=== PATIENT | male | born 1945 | race Caucasian/White ===

== ENCOUNTER 2019-09-25 18:35 | Inpatient (IN) | payer MEDICARE, OTHER ==
[2019-09-25] MEDS ORDERED: Acetaminophen 500 MG TAB ONE (19:19)
--- NOTE | 2019-09-25 19:40 | RAD ---
PORTABLE CHEST: Date: 09-25-2019 Provided Clinical History: Cough, fever. FINDINGS: Comparison 09-14-14. Cardiac silhouette appears enlarged, which may be partially on the basis of portable technique. There is right lower lung zone airspace disease. There is questioned right suprahilar airspace disease. Th e lungs appear otherwise clear. There is no pleural fluid or pneumothorax apparent. IMPRESSION: Right hemithoracic airspace disease as described, compatible with pneumonia in the appropriate clinic al context. Follow up is recommended. POS: DARCY
[2019-09-25 19:56] LABS: #Lymphocytes 0.6 thou/uL (1.20-3.40); #Monocytes 0.3 thou/uL (0.11-0.59); #Neutrophils 6.2 thou/uL (1.40-6.50); %Basophils 0.1 % (0.0-1.0); %Eosinophils 0.2 % (0.0-10.0); %Lymphocytes 8.1 % (21.0-51.0); %Monocytes 4.1 % (0.0-10.0); %Neutrophils 87.5 % (42.0-75.0); Hemoglobin 12.3 g/dL (14.0-18.0); Mean Corpuscular Hemoglobin 29.8 pg (27.0-31.0); Mean Corpuscular Volume 87.5 fL (78.0-98.0); Mean Platelet Volume 8.5 fL (7.4-10.4); Platelet Count 288 thou/uL (130-400); Red Blood Cell (RBC) Count 4.13 mill/uL (4.70-6.10); White Blood Cell (WBC) Count 7.1 thou/uL (4.8-10.8)
[2019-09-25 20:13] LABS: ALT (SGPT) 41 U/L (8-55); AST (SGOT) 68 U/L (5-34); Albumin 3.5 g/dL (3.4-4.8); Alkaline Phosphatase 84 U/L (40-110); Anion Gap 21 mmol/L (10-20); BUN (Urea Nitrogen) 77 mg/dL (8.4-25.7); Bilirubin, Total 0.5 mg/dL (0.2-1.2); Calc. Creatinine Clearance 0 mL/min (70-130); Calcium 9.3 mg/dL (7.8-10.44); Carbon Dioxide 21 mmol/L (23-31); Chloride 99 mmol/L (98-107); Estimated GFR-MDRD 8; Globulin 3.9 g/dL (2.4-3.5); Glucose 130 mg/dL (83-110); Potassium 3.9 mmol/L (3.5-5.1); Protein, Total 7.4 g/dL (5.8-8.1); Sodium 137 mmol/L (136-145)
[2019-09-25] MEDS ORDERED: Ondansetron PF 4 MG/2 ML Vial IVP PRN (21:04)
[2019-09-25] MEDS ORDERED: Sodium Chloride 0.9% 1,000 ML IV SCH (21:30)
[2019-09-25] MEDS ORDERED: cefTRIAXone\\ROCEPHIN 2 GM VIAL ONE (21:49)
[2019-09-25] MEDS ORDERED: Azithromycin 500 MG VIAL ONE (21:52)
[2019-09-25] MEDS ORDERED: Azithromycin 500 MG in Sodium Chloride 0.9% 250 ML 250 ML IVPB SCH (22:00)
[2019-09-25] MEDS ORDERED: Cefepime 1 GM in Sodium Chloride 0.9% 100 ML IVPB SCH (22:00)
--- NOTE | 2019-09-25 23:02 | HP ---
CHIEF COMPLAINT: Fever. HISTORY OF PRESENT ILLNESS: Mr. Baugh is a 74-year-old male with past medical history of diabetes mellitus, type 2; hypertension; and hyperlipidemia, presented to the emergency room with fever. In the emergency room, the patient looks somnolent and lethargic. The patient had a temperature of 101.1. The patient's oxygen saturation was 89% to 90% on room air. Currently 94% on 3 L/minute nasal cannula. On physical exam, the patient has crackles on the right lung. Chest x-ray shows right pneumonia? Septic workup done in the ED. Started on IV antibiotics. Viral panel including COVID testing was done and was sent to the emergency room. The patient also was found to be in acute renal failure with a creatinine of 6.53. [facility] is being consulted. The patient just came back from [facility] and he has been having cough and fever for one week. PAST MEDICAL HISTORY: As mentioned above in the history of present illness. PAST SURGICAL HISTORY: Tonsillectomy. SOCIAL HISTORY: No history of smoking or alcohol drinking or drug abuse. FAMILY HISTORY: Reviewed and noncontributory. ALLERGIES: NO KNOWN ALLERGIES. HOME MEDICATIONS: Please see home medication reconciliation form for updated medications. REVIEW OF SYSTEMS: Review of 14 systems negative except what is mentioned in the history of present illness. PHYSICAL EXAMINATION: GENERAL: The patient is somnolent, lethargic. VITAL SIGNS: Blood pressure 136/71, temperature 101.1, respiratory rate is 18, and oxygen saturation is 93% on 3 L/minute nasal cannula. HEAD AND NECK: Normocephalic, atraumatic. NECK: Supple. CHEST: Crackles in the right chest. HEART: S1 and S2. Regular. ABDOMEN: Soft, nontender. Bowel sounds present. NEURO: The patient is somnolent, lethargic. Moving extremities. PSYCH: Unable to assess. EXTREMITIES: No clubbing or cyanosis. GENITOURINARY: No suprapubic tenderness. No flank tenderness. LABORATORY DATA: Sodium 137, BUN is 77, creatinine 6.5, carbon dioxide is 21, lactic acid 1.1, and glucose is 130. WBC count is 7.1, hemoglobin 12.3, and platelets 288. IMAGING DATA: Chest x-ray shows right airspace disease compatible with pneumonia. ASSESSMENT: 1. Pneumonia. 2. Suspected COVID-2019 infection. 3. Acute renal failure. 4. Diabetes mellitus, type 2. 5. Hypertension. 6. Hyperlipidemia. PLAN: 1. Admit. 2. Septic workup including blood cultures, viral panel including COVID-2019 testing. 3. Isolation precautions, contact and droplet. 4. IV antibiotics. 5. Consult Nephrology for evaluation and further management regarding acute renal failure. 6. Cautious IV fluid hydration. 7. Monitor kidney function and urine output. 8. Reconcile home medications. 9. DVT prophylaxis as appropriate. 10. Expected length of stay, 2 midnights or more. Job ID: [id number]
[2019-09-25 23:22] VITALS: BMI 32.1
[2019-09-26] MEDS: Sodium Chloride 0.9% 1,000 ML IV SCH ×2 (00:39→17:23)
[2019-09-26 04:44] LABS: #Monocytes 0.3 thou/uL (0.11-0.59); #Neutrophils 5.1 thou/uL (1.40-6.50); %Basophils 0.1 % (0.0-1.0); %Eosinophils 0.3 % (0.0-10.0); %Lymphocytes 15.5 % (21.0-51.0); %Monocytes 5.2 % (0.0-10.0); %Neutrophils 78.9 % (42.0-75.0); Hemoglobin 10.7 g/dL (14.0-18.0); Mean Corpuscular HGB CONC 34.2 g/dL (32.0-36.0); Mean Corpuscular Hemoglobin 30.1 pg (27.0-31.0); Mean Corpuscular Volume 87.8 fL (78.0-98.0); Mean Platelet Volume 8.4 fL (7.4-10.4); Platelet Count 262 thou/uL (130-400); RBC Distribution Width 12.1 % (11.5-14.5); Red Blood Cell (RBC) Count 3.55 mill/uL (4.70-6.10); White Blood Cell (WBC) Count 6.4 thou/uL (4.8-10.8)
[2019-09-26 05:11] LABS: ALT (SGPT) 35 U/L (8-55); AST (SGOT) 59 U/L (5-34); Alkaline Phosphatase 70 U/L (40-110); Anion Gap 16 mmol/L (10-20); BUN (Urea Nitrogen) 83 mg/dL (8.4-25.7); Bilirubin, Total 0.4 mg/dL (0.2-1.2); Calc. Creatinine Clearance 14 mL/min (70-130); Calcium 8.4 mg/dL (7.8-10.44); Carbon Dioxide 23 mmol/L (23-31); Chloride 102 mmol/L (98-107); Estimated GFR-MDRD 8; Globulin 3.4 g/dL (2.4-3.5); Glucose 91 mg/dL (83-110); Potassium 3.7 mmol/L (3.5-5.1); Protein, Total 6.4 g/dL (5.8-8.1); Sodium 137 mmol/L (136-145)
[2019-09-26] MEDS ORDERED: Dextrose 50% Abboject 50 ML SYRINGE SLOW IVP PRN (08:17)
[2019-09-26] MEDS ORDERED: Dextrose 5% in Water 1,000 ML IV PRN (08:17)
[2019-09-26] MEDS ORDERED: Senokot S 8.6-50 MG TAB PO PRN (08:27)
[2019-09-26] MEDS ORDERED: Calcium Carbonate 500 MG ChewTAB PO PRN (08:27)
--- NOTE | 2019-09-26 08:37 | CON ---
DATE OF CONSULTATION: 09/26/2019 REASON FOR CONSULTATION: Possible COVID-19 infection, pneumonia. HISTORY OF PRESENT ILLNESS: The patient is a 74-year-old, who returned from [place] about 2 weeks ago where he has a 2nd house. He has not felt well since Wednesday. He has been running a fever up to 101. He has not been able to eat or drink anything. He has had a dry cough. He has also been found to be in acute renal failure. PAST MEDICAL HISTORY: 1. Type 2 diabetes. 2. Hypertension. 3. Hyperlipidemia. PAST SURGICAL HISTORY: Tonsillectomy. SOCIAL HISTORY: Does not smoke. Does not consume alcohol. He is retired. FAMILY MEDICAL HISTORY: Unremarkable. MEDICATIONS: Prior to admission; 1. Lisinopril/hydrochlorothiazide 20/12.5 one b.i.d. 2. Aspirin 81 mg daily. 3. Zocor 40 mg daily. 4. Glipizide 10 mg every morning. 5. Metformin 1000 mg b.i.d. ALLERGIES: NONE. REVIEW OF SYSTEMS: He has had subjective fever and chills. No nausea, vomiting, diarrhea. No hemoptysis. No hematochezia. No hematuria. No dysuria. PHYSICAL EXAMINATION: VITAL SIGNS: Temperature 98.8, pulse 63, respirations 22, O2 saturation 95% on 2 L, blood pressure 116/68. GENERAL: The patient is an elderly male, who appears in no acute respiratory distress. His O2 sats are 95% on 2 L. HEENT: Pupils react, sclerae icteric. Oropharynx clear. NECK: No adenopathy or JVD. LUNGS: He has inspiratory crackles both bases, best heard posteriorly. CARDIOVASCULAR: S1 and S2, regular without audible murmur. ABDOMEN: Soft, nontender to palpation. EXTREMITIES: No clubbing, cyanosis, or edema. LABORATORY DATA: Sodium 137, potassium 3.7, chloride 102, CO2 of 23, BUN 83, creatinine 7.1, glucose 91. AST 59, ALT 35. Albumin 3.0. White blood cell count 6.4, hematocrit 31.2, platelet count 262. His x-ray shows a right lower lobe infiltrate. ASSESSMENT: This is a 74-year-old male presenting with a 1-week history of a febrile illness with cough. X-ray shows infiltrative changes and he has risk factors of foreign travel that necessitate ruling out COVID-19 infection. He has comorbidities including diabetes mellitus and now the development of acute renal failure. RECOMMENDATIONS: 1. Agree with COVID-19 isolation. 2. Continue current antibiotics, although, I would be very aware with the vancomycin situation in acute renal failure. 3. Continue hydration. 4. Recommend Nephrology consultation. 5. If any worsening of his oxygenation, I will add Plaquenil to the azithromycin, but for now I will reserve that. 6. The patient needs to have his glucose monitored and we will treat him with sliding scale insulin for hyperglycemia. The above encompassed 70 minutes of time, of that time greater than 50% spent with the patient and/or the patient's unit in the hospital. Job ID: [id number]
[2019-09-26] MEDS: Famotidine 20 MG TAB PO SCH (08:55)
[2019-09-26] MEDS: Heparin 5,000 UNITS/ML VIAL SC SCH ×2 (08:55→20:22)
[2019-09-26] MEDS ORDERED: Famotidine/PF 20 mg/2ml Vial SLOW IVP SCH (09:00)
[2019-09-26 09:52] LABS: Bilirubin Negative (Negative); Blood, Urine 1+ (Negative); Clarity Clear (Clear); Glucose, Urine (Dipstick) Normal (Negative); Leukocyte Negative Leu/uL (Negative); Nitrite Negative (Negative); Protein, Urine (Dipstick) 50 mg/dL (Neg-Trace); Squamous Epithelial None Seen HPF (0-3); Urobilinogen Normal mg/dL (Less than 2); WBC/HPF 0-3 HPF (0-3)
[2019-09-26 09:53] LABS: Bacteria/HPF 1+ HPF (None Seen)
[2019-09-26 09:54] LABS: Urine Culture Reflex Yes Yes
[2019-09-26 10:59] LABS: Creatinine, Urine 76.27 mg/dL (63-166)
--- NOTE | 2019-09-26 11:16 | CON ---
DATE OF CONSULTATION: REASON FOR CONSULTATION: Elevated creatinine. HISTORY OF PRESENT ILLNESS: This is a very pleasant 74-year-old gentleman, presented to the hospital with cough and fevers and was taking aspirin for his fevers presented to the hospital. The patient is admitted for possible COVID-19 infection and pneumonia. The patient has had creatinine ranging anywhere from 0.8 to 1.7 in April of 2019. The patient was taking HUBERT inhibitors as well as hydrochlorothiazide. The patient has dyspnea on minimal exertion. Denies any chest pain. PAST MEDICAL HISTORY: Significant for hypertension, diabetes mellitus, hyperlipidemia, tonsillectomy. SOCIOECONOMIC HISTORY: No alcohol or drug use. FAMILY HISTORY: Negative for ESRD. ALLERGIES: REVIEWED. HOME MEDICATIONS: List reviewed. HOSPITAL MEDICATIONS: List reviewed. REVIEW OF SYSTEMS: A 15-point review of systems was performed, negative except what was noted above. HEENT: Eyes intact, no diplopia. Ears: No hearing loss or earache. Nose: No discharge or bleeding. Chest: No cough or phlegm. Abdomen: No nausea or vomiting. Genitourinary: No hematuria. No Rockwell catheter. Musculoskeletal: No low back pain. No joint swelling or pain. Neurological: No syncope. No seizures. Skin: No complaints of rash or itching. Psychiatric: No depression. Constitutional: No weight loss or loss of appetite. PHYSICAL EXAMINATION: GENERAL: The patient is awake, alert, and in [id number] distress. VITAL SIGNS: Temperature is 99.9, pulse 68, breathing is 16, blood pressure 127/68. HEENT: Head normocephalic and atraumatic. Eyes intact, no ulcers. Nose intact, no ulcers. Ears intact, no ulcers. Neck: Supple. No JVD. Chest: Symmetrical and lungs have crackles bilaterally. Cardiovascular: Shows S1 and S2, no rub, no murmur. Gastrointestinal: Abdomen is soft, bowel sounds positive. Extremities: Show no edema or ulcers. Skin: Shows no rash or petechiae. Musculoskeletal: Shows no joint swelling or stiffness. Genitourinary: Shows no Rockwell or CVA tenderness. Neurologic: Motor intact. Cranial nerves intact. LABORATORY DATA: Creatinine is 7.7, potassium 3.7, and bicarb 23. Urine shows protein present as well as blood pleasant. ASSESSMENT AND RECOMMENDATIONS: 1. Acute kidney injury with chronic kidney disease in the setting of sepsis, most likely acute tubular necrosis because of underlying sepsis. No urgent indication for dialysis. The patient is nonoliguric. 2. Microscopic hematuria, ordered renal imaging. 3. Proteinuria. 4. Overall, no urgent indication for dialysis. 5. Prognosis remains guarded. Job ID: [id number]
--- NOTE | 2019-09-26 15:34 | EKG ---
Test Reason : Blood Pressure : / mmHG Vent. Rate : 077 BPM Atrial Rate : 077 BPM P-R Int : 156 ms QRS Dur : 082 ms QT Int : 376 ms P-R-T Axes : 040 017 -08 degrees QTc Int : 425 ms Normal sinus rhythm Normal ECG Confirmed by LEIGHANN MALONE, MARIJA Epperson ([id number]), scientific editor ELIAN WELLER ([id number]) on 09/26/2019 3:34:06 PM Referred By: Confirmed By:MARIJA LAWTON MD
--- NOTE | 2019-09-26 17:38 | PDOC.HOSPP ---
- Subjective Encounter Date: 09/26/19 Encounter Time: 17:38 - Objective Vital Signs & Weight: Vital Signs (12 hours) Temp Pulse Resp BP Pulse Ox 09/26/19 15:12 99.4 F 70 20 114/54 L 94 L 09/26/19 11:28 99.7 F H 76 20 148/72 H 95 09/26/19 08:46 99.9 F H 68 18 127/68 93 L Weight Weight 230 lb 4.8 oz I&O: 09/25/19 09/26/19 09/27/19 06:59 06:59 06:59 Intake Total 839 1320 Output Total 450 730 Balance 389 590 Result Diagrams: 09/27/19 04:26 09/27/19 04:26 Additional Labs: Accuchecks 09/26/19 09:36 POC Glucose 97 Hospitalist ROS - Medication Medications: Active Medications Generic Name Dose Route Start Last Admin Trade Name Freq PRN Reason Stop Dose Admin Famotidine 20 mg 09/26/19 09:00 09/26/19 08:55 Pepcid PO 20 mg DAILY ROSALVA Administration Heparin Sodium (Porcine) 5,000 units 09/26/19 09:00 09/26/19 08:55 Heparin SC 5,000 units BID ROSALVA Administration Sodium Chloride 1,000 mls @ 70 mls/hr 09/25/19 21:45 09/26/19 17:23 Normal Saline 0.9% IV 1,000 mls .[id number] ROSALVA Administration Sodium Chloride 10 ml 09/26/19 09:00 09/26/19 08:55 Flush - Normal Saline IVF 10 ml Q12HR ROSALVA Administration Hosp A/P - Plan Sepsis due to Pneumonia IJEOMA/CKD 4 Obesity BMI 32.1 HTN HLD DM2 PLAN: Cont Empiric Atbx Pulm/Nephro input appreciated Await COVID testing Add UA Cont sliding scale Pt not examined to save PPE AM labs Full code DPOA - self/family
[2019-09-26] MEDS: Azithromycin 500 MG in Sodium Chloride 0.9% 250 ML 250 ML IVPB SCH (20:23)
[2019-09-26] MEDS: Acetaminophen 325 MG TAB PO PRN (20:23)
[2019-09-26] MEDS: Cefepime 1 GM in Sodium Chloride 0.9% 100 ML IVPB SCH (20:24)
[2019-09-26 22:40] LABS: Vancomycin, Random 19.7 ug/mL (See Comment)
[2019-09-26] MEDS ORDERED: Vancomycin 1 GM in Premix Bag 1 BAG IVPB SCH (23:00)
--- NOTE | 2019-09-27 01:40 | PDOC.BPN ---
- Brief Progress Note BRIEF EVENT NOTE Seen and examined at bedside. Patient resting comfortably in bed with no evidence of distress. Tells me he is feeling better from earlier today. On exam he has bilateral rhonchi but no evidence of distress. Continue to monitor with current treatment.
[2019-09-27 05:01] LABS: #Lymphocytes 0.9 thou/uL (1.20-3.40); #Monocytes 0.4 thou/uL (0.11-0.59); #Neutrophils 7.3 thou/uL (1.40-6.50); %Basophils 0.1 % (0.0-1.0); %Eosinophils 0.4 % (0.0-10.0); %Lymphocytes 9.9 % (21.0-51.0); %Monocytes 5.2 % (0.0-10.0); %Neutrophils 84.5 % (42.0-75.0); Hemoglobin 11.3 g/dL (14.0-18.0); Mean Corpuscular HGB CONC 35.6 g/dL (32.0-36.0); Mean Corpuscular Hemoglobin 31.5 pg (27.0-31.0); Mean Corpuscular Volume 88.3 fL (78.0-98.0); Platelet Count 295 thou/uL (130-400); RBC Distribution Width 11.9 % (11.5-14.5); Red Blood Cell (RBC) Count 3.57 mill/uL (4.70-6.10); White Blood Cell (WBC) Count 8.6 thou/uL (4.8-10.8)
[2019-09-27 05:08] LABS: ALT (SGPT) 42 U/L (8-55); AST (SGOT) 73 U/L (5-34); Albumin 2.9 g/dL (3.4-4.8); Alkaline Phosphatase 81 U/L (40-110); Anion Gap 18 mmol/L (10-20); BUN (Urea Nitrogen) 84 mg/dL (8.4-25.7); Bilirubin, Total 0.4 mg/dL (0.2-1.2); Calc. Creatinine Clearance 13 mL/min (70-130); Calcium 7.9 mg/dL (7.8-10.44); Carbon Dioxide 19 mmol/L (23-31); Chloride 105 mmol/L (98-107); Estimated GFR-MDRD 7; Globulin 3.3 g/dL (2.4-3.5); Glucose 102 mg/dL (83-110); Potassium 3.9 mmol/L (3.5-5.1); Protein, Total 6.2 g/dL (5.8-8.1); Sodium 138 mmol/L (136-145)
--- NOTE | 2019-09-27 08:48 | PRG ---
DATE OF SERVICE: 09/27/2019 SUBJECTIVE: The patient states that he feels much better today and has no acute complaints. OBJECTIVE: VITAL SIGNS: His temperature 99.2 with a T-max of 101.9, pulse 61, O2 saturation 94% on 4 L, and blood pressure 99/56. HEENT: Unremarkable. NECK: No adenopathy or JVD. LUNGS: Inspiratory crackles at bases bilaterally. CARDIAC: S1 and S2. Regular. ABDOMEN: Soft. EXTREMITIES: No edema. LABORATORY DATA: White blood cell count 8.6, hematocrit 31.6, and platelet count 295. Sodium 138, potassium 3.9, chloride 105, CO2 of 19, BUN 84, creatinine 7.4, and glucose 102. ASSESSMENT: 1. Bilateral pneumonia. 2. Rule out COVID-19 infection, serology still pending. 3. Acute renal failure. PLAN: 1. Continue supportive care with antibiotics. 2. Continue to monitor renal function. Job ID: [id number]
[2019-09-27] MEDS: Famotidine 20 MG TAB PO SCH (08:50)
[2019-09-27] MEDS: Heparin 5,000 UNITS/ML VIAL SC SCH ×2 (08:50→20:27)
[2019-09-27] MEDS: Sodium Chloride 0.9% 1,000 ML IV SCH ×3 (08:51→20:27)
[2019-09-27] MEDS ORDERED: Vancomycin HCl 500 MG in Sodium Chloride 0.9% 100 ML IVPB SCH (09:00)
--- NOTE | 2019-09-27 09:38 | RAD ---
PORTABLE CHEST: Date: 09/27/2019 HISTORY: Cough and fever. Travel history. Concern for COVID exposure. COMPARISON: 09/25/2019 exam. FINDINGS: There are worsening infiltrative lung changes. Changes in both lung bases are somewhat increased, mor e prominently in the right base, also changes in the right upper lobe and left mid and upper lung fie lds are worsened. IMPRESSION: Worsening infiltrative lung change. A possibility of COVID would be a consideration in this case. POS: KATHIE
--- NOTE | 2019-09-27 10:14 | PRG ---
DATE OF SERVICE: 09/27/2019 SUBJECTIVE: A 74-year-old gentleman, being seen for acute kidney injury. No new problems reported. OBJECTIVE: GENERAL: The patient is awake and alert. VITAL SIGNS: The patient is febrile, pulse 66, breathing at 16, blood pressure 110/57. HEENT: Head normocephalic and atraumatic. Eyes intact, no ulcers. Nose intact, no ulcers. Ears intact, no ulcers. NECK: Supple. No JVD. CHEST: Symmetrical and clear. CARDIOVASCULAR: Shows S1 and S2, no rub, no murmur. GASTROINTESTINAL: Abdomen is soft, bowel sounds positive. EXTREMITIES: Show no edema or ulcers. SKIN: Shows no rash or petechiae. MUSCULOSKELETAL: Shows no joint swelling or stiffness. GENITOURINARY: Shows no Rockwell or CVA tenderness. NEUROLOGIC: Motor intact. Cranial nerves intact. LABORATORY DATA: Show hemoglobin 11.3. Creatinine 7.3. ASSESSMENT AND PLAN: 1. Acute kidney injury with progressive chronic kidney disease, stage 5, most likely acute tubular necrosis due to underlying septic process. No urgent indication for dialysis. 2. Hypertension, stable. 3. Anemia, stable. 4. Medication based on GFR is appropriate. 5. Overall, prognosis is poor. We will rule out COVID-19. Job ID: [id number]
[2019-09-27] MEDS: Acetaminophen 325 MG TAB PO PRN ×2 (11:37→22:18)
[2019-09-27] MEDS ORDERED: Hydroxychloroquine Sulfate 200 MG TAB PO SCH ×2 (16:45→21:00)
[2019-09-27] MEDS: Zinc Sulfate 220 MG CAP PO SCH (17:22)
[2019-09-27] MEDS: Azithromycin 500 MG in Sodium Chloride 0.9% 250 ML 250 ML IVPB SCH (20:27)
[2019-09-27] MEDS: Cefepime 1 GM in Sodium Chloride 0.9% 100 ML IVPB SCH (22:16)
[2019-09-28 05:33] LABS: Band 10 % (5-11); Eosinophils 1 % (0-10); Lymphocytes 9 % (21-51); MDiff Complete? YES; Mean Corpuscular HGB CONC 34.9 g/dL (32.0-36.0); Mean Corpuscular Hemoglobin 30.4 pg (27.0-31.0); Mean Corpuscular Volume 87.1 fL (78.0-98.0); Mean Platelet Volume 7.6 fL (7.4-10.4); Monocytes 3 % (0-10); Neutrophil 77 % (42-75); Platelet Count 351 thou/uL (130-400); Platelet Morphology Comment Appears Adequate; Red Blood Cell (RBC) Count 3.94 mill/uL (4.70-6.10); White Blood Cell (WBC) Count 7.3 thou/uL (4.8-10.8)
[2019-09-28 05:43] LABS: ALT (SGPT) 49 U/L (8-55); AST (SGOT) 74 U/L (5-34); Alkaline Phosphatase 95 U/L (40-110); Anion Gap 18 mmol/L (10-20); BUN (Urea Nitrogen) 76 mg/dL (8.4-25.7); Bilirubin, Total 0.5 mg/dL (0.2-1.2); Calc. Creatinine Clearance 16 mL/min (70-130); Carbon Dioxide 19 mmol/L (23-31); Chloride 106 mmol/L (98-107); Estimated GFR-MDRD 9; Globulin 3.7 g/dL (2.4-3.5); Glucose 139 mg/dL (83-110); Potassium 3.6 mmol/L (3.5-5.1); Protein, Total 6.7 g/dL (5.8-8.1); Sodium 139 mmol/L (136-145)
[2019-09-28] MEDS: Heparin 5,000 UNITS/ML VIAL SC SCH ×2 (08:36→21:24)
[2019-09-28] MEDS: Famotidine 20 MG TAB PO SCH (08:36)
[2019-09-28] MEDS: Hydroxychloroquine Sulfate 200 MG TAB PO SCH ×2 (08:37→21:25)
--- NOTE | 2019-09-28 08:54 | PDOC.HOSPP ---
- Subjective Encounter Date: 09/27/19 Encounter Time: 17:00 - Objective Vital Signs & Weight: Vital Signs (12 hours) Temp Pulse Resp BP BP BP Pulse Ox 09/28/19 07:40 92 L 09/28/19 07:37 99.9 F H 67 19 145/70 H 92 L 09/28/19 04:13 99.4 F 75 24 H 126/62 93 L 09/27/19 23:38 100.2 F H 75 24 H 149/73 H 93 L Weight Weight 230 lb 4.8 oz I&O: 09/27/19 09/28/19 09/29/19 06:59 06:59 06:59 Intake Total 2910 2360 Output Total 1330 1425 Balance 1580 935 Result Diagrams: 09/28/19 05:06 09/28/19 05:06 Additional Labs: Accuchecks 09/28/19 09/27/19 09/27/19 05:52 20:29 16:43 POC Glucose 148 H 188 H 144 H 09/27/19 11:41 POC Glucose 203 H Hospitalist ROS - Medication Medications: Active Medications Generic Name Dose Route Start Last Admin Trade Name Freq PRN Reason Stop Dose Admin Acetaminophen 650 mg 09/25/19 21:04 09/27/19 22:18 Tylenol PO 650 mg Q4H PRN Administration Headache/Fever/Mild Pain (1-3) Famotidine 20 mg 09/26/19 09:00 09/27/19 08:50 Pepcid PO 20 mg DAILY ROSALVA Administration Heparin Sodium (Porcine) 5,000 units 09/26/19 09:00 09/27/19 20:27 Heparin SC 5,000 units BID ROSALVA Administration Sodium Chloride 1,000 mls @ 70 mls/hr 09/25/19 21:45 09/27/19 20:27 Normal Saline 0.9% IV 1,000 mls .[id number] ROSALVA Administration Azithromycin 500 mg/ Sodium 250 mls @ 250 mls/hr 09/26/19 21:00 09/27/19 20: 27 Chloride IVPB 250 mls 2100 ROSALVA Administration Cefepime HCl 1 gm/ Sodium 100 mls @ 200 mls/hr 09/26/19 21:00 09/27/19 22:16 Chloride IVPB 100 mls 2100 ROSALVA Administration Sodium Chloride 10 ml 09/26/19 09:00 09/27/19 20:46 Flush - Normal Saline IVF Not Given Q12HR ROSALVA Zinc Sulfate 220 mg 09/27/19 18:00 09/27/19 17:22 Zinc Sulfate PO 220 mg 1800 ROSALVA Administration Hosp A/P - Plan Sepsis due to COVID Pneumonia IJEOMA/CKD 4 Obesity BMI 32.1 HTN HLD DM2 PLAN: Cont Empiric Atbx Cont IVF per Nephro Cont sliding scale AM labs Cont Hydroxychloroquine
--- NOTE | 2019-09-28 09:07 | PRG ---
DATE OF SERVICE: 09/28/2019 SUBJECTIVE: The patient is doing well. He did not know he was COVID positive until I walked in the room and told him this morning. OBJECTIVE: VITAL SIGNS: On exam, temperature is 99.9 with a T-max of 100.2, pulse 67, respirations 19, O2 saturation on 4 L, and blood pressure 145/70. HEENT: Unremarkable. NECK: No adenopathy or JVD. LUNGS: Clear except at the base, where he has crackles. ABDOMEN: Soft and nontender. EXTREMITIES: No edema. LABORATORY DATA: Show BUN of 76, creatinine 6.2, both have been reduced since yesterday. His initial ferritin is 2386 and C-reactive protein is 29.7. ASSESSMENT: COVID positive with hypoxemia and acute renal failure. PLAN: So far, his course seems favorable. I am treating him with hydroxychloroquine, azithromycin, and zinc. I would continue to gently hydrate him with IV fluids. We need to continue to monitor his oxygen level. Job ID: [id number]
--- NOTE | 2019-09-28 11:48 | PRG ---
DATE OF SERVICE: 09/28/2019 SUBJECTIVE: This is a 74-year-old gentleman, being seen for acute kidney injury. No chest pain reported. On examination, the patient is resting. PHYSICAL EXAMINATION: General: The patient is awake and alert. VITAL SIGNS: Afebrile, pulse 74, breathing 16, blood pressure 145/70. HEENT: Head normocephalic and atraumatic. Eyes intact, no ulcers. Nose intact, no ulcers. Ears intact, no ulcers. Neck: Supple. No JVD. Chest: Lungs show crackles. Cardiovascular: Shows S1 and S2, no rub, no murmur. Gastrointestinal: Abdomen is soft, bowel sounds positive. Extremities: Show no edema or ulcers. Skin: Shows no rash or petechiae. Musculoskeletal: Shows no joint swelling or stiffness. Genitourinary: Shows no Rockwell or CVA tenderness. Neurologic: Motor intact. Cranial nerves intact. LABORATORY DATA: Lab showed hemoglobin 12. Creatinine 6.27. ASSESSMENT AND PLAN: 1. Acute kidney injury with chronic kidney disease, stage . 2. Hypertension, stable. 3. Anemia, stable. 4. Medication based on GFR, appropriate. No indication for dialysis. Job ID: [id number]
--- NOTE | 2019-09-28 13:36 | PQF ---
CLINICAL DOCUMENTATION IMPROVEMENT CLARIFICATION FORM: ICD-10 Updated PLEASE DO AN ADDENDUM TO THE PROGRESS NOTE WITH ANY DOCUMENTATION UPDATES OR ADDITIONS AND CARRY THROUGH TO DC SUMMARY. THANK YOU. DATE: 09/28/2019 ATTN: Dr. Barbosa Please exercise your independent, professional judgment in responding to the clarification form. Clinical indicators are provided on the bottom of this form for your review Please check appropriate box(s): [ ] Acute Respiratory Failure: [ ] with Hypoxia [ ] with Hypercapnia [ ] Acute Respiratory Failure due to: (etiology) [ ] Acute On Chronic Respiratory Failure: [ ] with Hypoxia [ ] with Hypercapnia [ ] Respiratory Insufficiency [ ] Hypoxia [ ] Other diagnosis [ ] Unable to determine In addition, please specify: Present on Admission (POA): [ ] Yes [ ] No [ ] Unable to determine For continuity of documentation, please document condition throughout progress notes and discharge summary. Thank You. CLINICAL INDICATORS - SIGNS / SYMPTOMS / LABS / RESULTS AND LOCATION IN MR H&P 09/24: The pt's O2 sat was 89% to 90% on room air. Currently 94% on 3L/min nc. VS: resp. rate 18 09/27 (Madi) COVID positive with hypoxemia and acute renal failure. RISKS: H&P 09/24: Assessment: Pneumonia. Suspected COVID-19 infection. Acute renal failure. DM 2. 09/26 (Chelsey) Sepsis due to COVID Pneumonia. TREATMENT: Order Resp 09/24: O2 to keep sats continuous, O2 sat 94% Pulmonology Consult ordered 09/24 09/27 (Madi) We need to continue to monitor his oxygen level. Order Resp 09/26: Pulse Ox Continuous. Thank you, Nehal (This form is maintained as a part of the permanent medical record) 2014 [employer]. All Rights Reserved Nehal Curry RN, BSN [email or web address]
[2019-09-28] MEDS: Zinc Sulfate 220 MG CAP PO SCH (16:56)
[2019-09-28] MEDS: Azithromycin 500 MG in Sodium Chloride 0.9% 250 ML 250 ML IVPB SCH (21:25)
[2019-09-28] MEDS: Insulin Regular 300 UNITS/3 ML VIAL SC PRN (22:15)
[2019-09-28] MEDS: Sodium Chloride 0.9% 1,000 ML IV SCH (22:16)
[2019-09-29] MEDS: Cefepime 1 GM in Sodium Chloride 0.9% 100 ML IVPB SCH (00:43)
--- NOTE | 2019-09-29 03:54 | PDOC.EVN ---
Event Note - Event Note Event Note: received page at 345am. Patient desaturating, tachypnic, now on 6L NC. requested to stop fluids considering positive balance in the past several days, escalate to HFNC. May need escalation of care and intubation if doesnt improve
[2019-09-29 05:39] LABS: INR-International Normal Ratio 1.3; PTT 33.5 SEC (22.9-36.1); Prothrombin Time 15.9 SEC (12.0-14.7)
[2019-09-29 05:52] LABS: Hemoglobin 10.8 g/dL (14.0-18.0); Mean Corpuscular HGB CONC 32.8 g/dL (32.0-36.0); Mean Corpuscular Hemoglobin 28.9 pg (27.0-31.0); Mean Corpuscular Volume 87.9 fL (78.0-98.0); Red Blood Cell (RBC) Count 3.74 mill/uL (4.70-6.10)
[2019-09-29 05:53] LABS: D-Dimer Test 4.85 *mcg/mL (0.27-0.43)
[2019-09-29 06:03] LABS: ALT (SGPT) 57 U/L (8-55); AST (SGOT) 72 U/L (5-34); Albumin 2.9 g/dL (3.4-4.8); Alkaline Phosphatase 103 U/L (40-110); Anion Gap 17 mmol/L (10-20); BUN (Urea Nitrogen) 69 mg/dL (8.4-25.7); Bilirubin, Total 0.7 mg/dL (0.2-1.2); CRP (Inflammatory) 28.27 mg/dL (= or < 0.5); Calc. Creatinine Clearance 19 mL/min (70-130); Calcium 7.9 mg/dL (7.8-10.44); Carbon Dioxide 23 mmol/L (23-31); Chloride 104 mmol/L (98-107); Estimated GFR-MDRD 11; Globulin 3.7 g/dL (2.4-3.5); Glucose 144 mg/dL (83-110); Magnesium 1.4 mg/dL (1.6-2.6); Potassium 3.6 mmol/L (3.5-5.1); Protein, Total 6.6 g/dL (5.8-8.1); Sodium 140 mmol/L (136-145)
[2019-09-29] MEDS ORDERED: Magnesium Sulfate 2 GM in Sodium Chloride 0.9% 100 ML IVPB SCH (06:15)
[2019-09-29] MEDS ORDERED: Magnesium 2 GM/50 ML 2 GM in Premix Bag 1 BAG IVPB SCH (06:15)
--- NOTE | 2019-09-29 06:18 | PDOC.HOSPP ---
- Subjective Encounter Date: 09/28/19 Encounter Time: 17:30 - Objective Vital Signs & Weight: Vital Signs (12 hours) Temp Pulse Resp BP BP Pulse Ox 09/29/19 05:22 61 26 H 98 09/29/19 03:26 100 F H 58 L 30 H 125/59 L 93 L 09/29/19 02:00 93 L 09/29/19 00:35 100.2 F H 61 26 H 111/57 L 93 L 09/28/19 21:30 94 L 09/28/19 21:12 98.3 F 77 22 H 125/74 94 L Weight Weight 230 lb 4.8 oz I&O: 09/27/19 09/28/19 09/29/19 06:59 06:59 06:59 Intake Total 2910 2360 3293 Output Total 1330 1425 2780 Balance 1580 935 513 Result Diagrams: 09/29/19 05:09 09/29/19 05:09 Additional Labs: Accuchecks 09/28/19 09/28/19 09/28/19 21:22 15:47 11:17 POC Glucose 223 H 192 H 272 H EKG Reviewed by me: Yes (Tele SR) Hospitalist ROS - Medication Medications: Active Medications Generic Name Dose Route Start Last Admin Trade Name Freq PRN Reason Stop Dose Admin Acetaminophen 650 mg 09/25/19 21:04 09/27/19 22:18 Tylenol PO 650 mg Q4H PRN Administration Headache/Fever/Mild Pain (1-3) Famotidine 20 mg 09/26/19 09:00 09/28/19 08:36 Pepcid PO 20 mg DAILY ROSALVA Administration Heparin Sodium (Porcine) 5,000 units 09/26/19 09:00 09/28/19 21:24 Heparin SC 5,000 units BID ROSALVA Administration Hydroxychloroquine Sulfate 200 mg 09/28/19 09:00 09/28/19 21:25 Plaquenil PO 10/01/19 21:01 200 mg BID ROSALVA Administration Sodium Chloride 1,000 mls @ 70 mls/hr 09/25/19 21:45 09/28/19 22:16 Normal Saline 0.9% IV Not Given .[id number] ROSALVA Azithromycin 500 mg/ Sodium 250 mls @ 250 mls/hr 09/26/19 21:00 09/28/19 21: 25 Chloride IVPB 250 mls 2100 ROSALVA Administration Cefepime HCl 1 gm/ Sodium 100 mls @ 200 mls/hr 09/28/19 23:59 09/29/19 00:43 Chloride IVPB 100 mls 2359 ROSALVA Administration Insulin Human Regular 0 units 09/26/19 08:27 09/28/19 22:15 Humulin R SC 2 unit .BEDTIME SLIDING SC PRN Administration Bedtime Correctional Scale Sodium Chloride 10 ml 09/26/19 09:00 09/28/19 21:26 Flush - Normal Saline IVF Not Given Q12HR ROSALVA Zinc Sulfate 220 mg 09/27/19 18:00 09/28/19 16:56 Zinc Sulfate PO 220 mg 1800 ROSALVA Administration Hosp A/P - Plan plan discussed w/ family (spouse) Sepsis due to COVID Pneumonia Acute hypoxic resp failure IJEOMA/CKD 4 Obesity BMI 32.1 HTN HLD DM2 Hypomagnesemia PLAN: Cont Hydroxychloroquine Cont Empiric Atbx Replace Mag Cont IVF per Nephro Cont sliding scale AM labs ACEI on hold due to IJEOMA
[2019-09-29 06:31] LABS: Band 12 % (5-11); Eosinophils 1 % (0-10); Lymphocytes 8 % (21-51); MDiff Complete? YES; Mean Platelet Volume 7.9 fL (7.4-10.4); Monocytes 3 % (0-10); Neutrophil 76 % (42-75); Platelet Count 434 thou/uL (130-400); White Blood Cell (WBC) Count 8.6 thou/uL (4.8-10.8)
--- NOTE | 2019-09-29 07:24 | RAD ---
SINGLE VIEW CHEST: Date: 09/29/2019 COMPARISON: 09/25/2019. HISTORY: Decompensating respiratory status. Recent travels to [place] with a cough and fever. Possible COVID. FINDINGS: Single view of the chest shows a normal sized cardiomediastinal silhouette. There are worsening multi focal infiltrates in the lungs. No pleural effusion is seen. IMPRESSION: Worsening multifocal pneumonia. POS: [facility]
[2019-09-29] MEDS: Hydroxychloroquine Sulfate 200 MG TAB PO SCH ×2 (08:25→20:34)
[2019-09-29] MEDS: Famotidine 20 MG TAB PO SCH (08:25)
[2019-09-29] MEDS: Heparin 5,000 UNITS/ML VIAL SC SCH ×2 (08:25→20:34)
[2019-09-29] MEDS ORDERED: Potassium Chloride 20 MEQ TAB PO ONE (09:00)
[2019-09-29] MEDS ORDERED: Furosemide 40 MG/4 ML VIAL IVP SCH (10:19)
--- NOTE | 2019-09-29 10:37 | PRG ---
DATE OF SERVICE: 09/29/2019 Diomedes Baugh' intake and output were reviewed. He is over 2 L positive since he was admitted. His gas exchange has deteriorated somewhat. These patients need to be kept on the dry side, so he has been given a dose of IV Lasix at this time. Hopefully, this will lead to stabilization. Unnecessary fluids need to be avoided. His QT interval was prolonged yesterday, so his azithromycin has been discontinued. He has had 4 doses, so this will be in his system for some period of time. Job ID: [id number]
--- NOTE | 2019-09-29 11:05 | PRG ---
DATE OF SERVICE: 09/29/2019 SUBJECTIVE: A 74-year-old gentleman, being seen for acute kidney injury. No nausea, vomiting, or chest pain. OBJECTIVE: GENERAL: The patient is resting. VITAL SIGNS: Temperature 99.8, pulse 75, breathing at 16, blood pressure 133/71. HEENT: Head normocephalic and atraumatic. Eyes intact, no ulcers. Nose intact, no ulcers. Ears intact, no ulcers. NECK: Supple. No JVD. CHEST: Symmetrical and clear. CARDIOVASCULAR: Shows S1 and S2, no rub, no murmur. GASTROINTESTINAL: Abdomen is soft, bowel sounds positive. EXTREMITIES: Show no edema or ulcers. SKIN: Shows no rash or petechiae. MUSCULOSKELETAL: Shows no joint swelling or stiffness. GENITOURINARY: Shows no Rockwell or CVA tenderness. NEUROLOGIC: Motor intact. Cranial nerves intact. LABORATORY DATA: Show hemoglobin 10.8. Creatinine is 5.05. ASSESSMENT AND PLAN: 1. Acute kidney injury, improved. The patient is nonoliguric. 2. Hypertension, stable. 3. Anemia, stable. No indication for dialysis. 4. Hypomagnesemia. We would recommend magnesium replacement. Job ID: [id number]
[2019-09-29] MEDS: Insulin Regular 300 UNITS/3 ML VIAL SC PRN ×3 (12:08→20:35)
[2019-09-29] MEDS: Sodium Chloride 0.9% 1,000 ML IV SCH (13:45)
--- NOTE | 2019-09-29 15:07 | PDOC.HOSPP ---
- Subjective Encounter Date: 09/29/19 Encounter Time: 09:00 Subjective: Patient denies any new complaints. Overnight events noted. - Objective Vital Signs & Weight: Vital Signs (12 hours) Temp Pulse Resp BP BP BP Pulse Ox 09/29/19 10:40 99.6 F 71 24 H 153/77 H 95 09/29/19 08:19 99.8 F H 75 24 H 133/71 95 09/29/19 07:41 95 09/29/19 05:22 61 26 H 98 09/29/19 03:26 100 F H 58 L 30 H 125/59 L 93 L Weight Weight 230 lb 4.8 oz I&O: 09/28/19 09/29/19 09/30/19 06:59 06:59 06:59 Intake Total 2360 3293 120 Output Total 1425 2780 800 Balance 935 513 -680 Result Diagrams: 09/29/19 05:09 09/29/19 05:09 Additional Labs: Accuchecks 09/29/19 09/28/19 09/28/19 12:05 21:22 15:47 POC Glucose 235 H 223 H 192 H 09/28/19 11:17 POC Glucose 272 H Radiology Reviewed by me: Yes (CXR - Multifocal infiltrates) EKG Reviewed by me: Yes (Tele SR) Hospitalist ROS - Review of Systems Gastrointestinal: denies: nausea, vomiting, abdominal pain, diarrhea, constipation, melena, hematochezia, other - Medication Medications: Active Medications Generic Name Dose Route Start Last Admin Trade Name Freq PRN Reason Stop Dose Admin Acetaminophen 650 mg 09/25/19 21:04 09/27/19 22:18 Tylenol PO 650 mg Q4H PRN Administration Headache/Fever/Mild Pain (1-3) Famotidine 20 mg 09/26/19 09:00 09/29/19 08:25 Pepcid PO 20 mg DAILY ROSALVA Administration Heparin Sodium (Porcine) 5,000 units 09/26/19 09:00 09/29/19 08:25 Heparin SC 5,000 units BID ROSALVA Administration Hydroxychloroquine Sulfate 200 mg 09/28/19 09:00 09/29/19 08:25 Plaquenil PO 10/01/19 21:01 200 mg BID ROSALVA Administration Cefepime HCl 1 gm/ Sodium 100 mls @ 200 mls/hr 09/28/19 23:59 04/10/20 00:43 Chloride IVPB 100 mls 2359 ROSALVA Administration Insulin Human Regular 0 units 09/26/19 08:17 09/29/19 12:08 Humulin R SC 3 unit .MILD SLIDING SCALE PRN Administration Mild Correctional Scale Insulin Human Regular 0 units 09/26/19 08:27 09/28/19 22:15 Humulin R SC 2 unit .BEDTIME SLIDING SC PRN Administration Bedtime Correctional Scale Sodium Chloride 10 ml 09/26/19 09:00 09/29/19 08:26 Flush - Normal Saline IVF 10 ml Q12HR ROSALVA Administration Zinc Sulfate 220 mg 09/27/19 18:00 09/28/19 16:56 Zinc Sulfate PO 220 mg 1800 ROSALVA Administration - Exam Psychiatric: A&O x 3 Hosp A/P - Plan DVT proph w/SCDs Sepsis due to COVID Pneumonia Acute hypoxic resp failure - on high flow O2 IJEOMA/CKD 4 - slowly improving Obesity BMI 32.1 HTN HLD DM2 Hypomagnesemia PLAN: Replace Magnesium Cont Hydroxychloroquine Cont Empiric Atbx IVF DCed Cont sliding scale AM labs ACEI on hold due to IJEOMA
--- NOTE | 2019-09-29 16:44 | ULT ---
Renal ultrasound: 09/29/2019 COMPARISON: None HISTORY: Acute kidney injury/renal insufficiency, positive Covid-19 TECHNIQUE: Multiplanar grayscale sonographic imaging of the kidneys and urinary bladder obtained. FINDINGS: Right kidney 13.0 x 6.6 x 7.5 cm and left kidney measures 13.2 x 6.2 x 5.9 cm. Multiple diogenes ateral renal cysts are noted, measuring up to 5.7 cm on the right and 3.5 cm on the left. No hydronephrosis or solid renal mass evident. No discrete renal calcification/stone. Urinary bladder ap pears grossly unremarkable. IMPRESSION: No hydronephrosis.
[2019-09-29] MEDS: Acetaminophen 325 MG TAB PO PRN (16:55)
[2019-09-29] MEDS: Zinc Sulfate 220 MG CAP PO SCH (16:57)
[2019-09-30] MEDS: Cefepime 1 GM in Sodium Chloride 0.9% 100 ML IVPB SCH ×2 (00:05→21:11)
[2019-09-30 05:27] LABS: ALT (SGPT) 82 U/L (8-55); AST (SGOT) 89 U/L (5-34); Albumin 2.9 g/dL (3.4-4.8); Alkaline Phosphatase 130 U/L (40-110); Anion Gap 18 mmol/L (10-20); BUN (Urea Nitrogen) 63 mg/dL (8.4-25.7); Bilirubin, Total 0.9 mg/dL (0.2-1.2); CRP (Inflammatory) 26.74 mg/dL (= or < 0.5); Calc. Creatinine Clearance 24 mL/min (70-130); Calcium 8.1 mg/dL (7.8-10.44); Carbon Dioxide 25 mmol/L (23-31); Chloride 100 mmol/L (98-107); Estimated GFR-MDRD 14; Globulin 3.9 g/dL (2.4-3.5); Glucose 188 mg/dL (83-110); Potassium 3.1 mmol/L (3.5-5.1); Protein, Total 6.8 g/dL (5.8-8.1); Sodium 140 mmol/L (136-145)
[2019-09-30 05:30] LABS: Band 6 % (5-11); Eosinophils 2 % (0-10); Hemoglobin 10.7 g/dL (14.0-18.0); Lymphocytes 7 % (21-51); MDiff Complete? YES; Mean Corpuscular HGB CONC 33.7 g/dL (32.0-36.0); Mean Corpuscular Hemoglobin 29.4 pg (27.0-31.0); Mean Corpuscular Volume 87.5 fL (78.0-98.0); Mean Platelet Volume 7.7 fL (7.4-10.4); Monocytes 1 % (0-10); Neutrophil 84 % (42-75); Platelet Count 456 thou/uL (130-400); Platelet Morphology Comment Appears Increased; RBC Distribution Width 11.9 % (11.5-14.5); Red Blood Cell (RBC) Count 3.63 mill/uL (4.70-6.10); White Blood Cell (WBC) Count 11.1 thou/uL (4.8-10.8)
[2019-09-30] MEDS: Insulin Regular 300 UNITS/3 ML VIAL SC PRN ×4 (06:04→21:12)
[2019-09-30] MEDS: Heparin 5,000 UNITS/ML VIAL SC SCH ×2 (09:08→21:11)
[2019-09-30] MEDS: Famotidine 20 MG TAB PO SCH (09:08)
[2019-09-30] MEDS: Hydroxychloroquine Sulfate 200 MG TAB PO SCH ×2 (09:08→21:11)
--- NOTE | 2019-09-30 12:09 | PDOC.HOSPP ---
- Subjective Encounter Date: 09/30/19 Encounter Time: 11:15 Subjective: is on high flow oxygen says he is comfortable breathing ate his breakfast, is moving in the room no chest pain or palp - Objective Vital Signs & Weight: Vital Signs (12 hours) Temp Pulse Resp BP BP Pulse Ox 09/30/19 08:22 97 09/30/19 08:00 100.0 F H 72 24 H 134/67 97 09/30/19 03:36 100.9 F H 74 28 H 146/79 H 90 L Weight Weight 230 lb 4.8 oz I&O: 09/29/19 09/30/19 10/01/19 06:59 06:59 06:59 Intake Total 3293 1460 Output Total 2784 7695 Balance 513 -615 Result Diagrams: 09/30/19 04:56 09/30/19 04:56 Additional Labs: Accuchecks 09/29/19 09/29/19 09/29/19 20:38 16:11 12:05 POC Glucose 288 H 188 H 235 H Hospitalist ROS - Medication Medications: Active Medications Generic Name Dose Route Start Last Admin Trade Name Freq PRN Reason Stop Dose Admin Acetaminophen 650 mg 09/25/19 21:04 09/29/19 16:55 Tylenol PO 650 mg Q4H PRN Administration Headache/Fever/Mild Pain (1-3) Famotidine 20 mg 09/26/19 09:00 09/30/19 09:08 Pepcid PO 20 mg DAILY ROSALVA Administration Heparin Sodium (Porcine) 5,000 units 09/26/19 09:00 09/30/19 09:08 Heparin SC 5,000 units BID ROSALVA Administration Hydroxychloroquine Sulfate 200 mg 09/28/19 09:00 09/30/19 09:08 Plaquenil PO 10/01/19 21:01 200 mg BID ROSALVA Administration Cefepime HCl 1 gm/ Sodium 100 mls @ 200 mls/hr 09/28/19 23:59 09/30/19 00:05 Chloride IVPB 100 mls 2359 ROSALVA Administration Insulin Human Regular 0 units 09/26/19 08:17 09/30/19 06:04 Humulin R SC 2 unit .MILD SLIDING SCALE PRN Administration Mild Correctional Scale Insulin Human Regular 0 units 09/26/19 08:27 09/29/19 20:35 Humulin R SC 3 unit .BEDTIME SLIDING SC PRN Administration Bedtime Correctional Scale Sodium Chloride 10 ml 09/26/19 09:00 09/30/19 09:08 Flush - Normal Saline IVF 10 ml Q12HR ROSALVA Administration Zinc Sulfate 220 mg 09/27/19 18:00 09/29/19 16:57 Zinc Sulfate PO 220 mg 1800 ROSALVA Administration - Exam General Appearance: awake alert Eye: PERRL, anicteric sclera ENT: no oropharyngeal lesions, moist mucosa Neck: supple, no JVD Heart: RRR, no murmur Respiratory: no wheezes, rales, rhonchi Gastrointestinal: soft, non-tender, non-distended, normal bowel sounds Extremities: no cyanosis, no edema Neurological: cranial nerve grossly intact, no focal deficits Hosp A/P (1) COVID-19 virus detected Code(s): U07.1 - COVID-19 Status: Acute (2) PNA (pneumonia) Code(s): J18.9 - PNEUMONIA, UNSPECIFIED ORGANISM Status: Acute Qualifiers: Laterality: bilateral (3) Acute respiratory failure with hypoxia Code(s): J96.01 - ACUTE RESPIRATORY FAILURE WITH HYPOXIA Status: Acute (4) IJEOMA (acute kidney injury) Code(s): N17.9 - ACUTE KIDNEY FAILURE, UNSPECIFIED Status: Acute (5) CKD (chronic kidney disease) stage 4, GFR 15-29 ml/min Code(s): N18.4 - CHRONIC KIDNEY DISEASE, STAGE 4 (SEVERE) Status: Chronic (6) HTN (hypertension) Code(s): I10 - ESSENTIAL (PRIMARY) HYPERTENSION Status: Chronic Qualifiers: Hypertension type: essential hypertension Qualified Code(s): I10 - Essential (primary) hypertension (7) Sepsis Code(s): A41.9 - SEPSIS, UNSPECIFIED ORGANISM Status: Acute Qualifiers: Sepsis acute organ dysfunction status: with acute organ dysfunction Severe sepsis acute organ dysfunction type: acute renal failure Severe sepsis shock status: without septic shock (8) DM type 2 (diabetes mellitus, type 2) Status: Chronic Qualifiers: Diabetes mellitus mcc insulin use: without mcc use Diabetes mellitus complication status: with kidney complications Diabetes mellitus complication detail: with chronic kidney disease Chronic kidney disease stage : stage 4 (severe) Qualified Code(s): E11.22 - Type 2 diabetes mellitus with diabetic chronic kidney disease; N18.4 - Chronic kidney disease, stage 4 (severe ) (9) Dyslipidemia Code(s): E78.5 - HYPERLIPIDEMIA, UNSPECIFIED Status: Chronic (10) Obesity (BMI 30.0-34.9) Code(s): E66.9 - OBESITY, UNSPECIFIED Status: Chronic - Plan is on high flow oxygen now with spo2 of 92% still has fever, renal function is better is oriented but hard of hearing finished 4 days of zithromax and is currently on hydoxychloroquine, cefepime, znso4 d/w Lilian Horta and gave an update code status was revisited specifically if he wants to go on ventilator if he gets worse, he will talk to his and 2 daughters and let us know.
--- NOTE | 2019-09-30 12:47 | PRG ---
DATE OF SERVICE: 09/30/2019 Mr. Baugh hemodynamics has been stable. I am told by the nurse that he is feeling better. Oximetry is up into the high 90s this morning. He is not examined secondary to limiting the use of personal protective equipment. I have asked the nurses caring for him to ask him to auto prone i.e., lie on his stomach 3-4 times a day for an hour at a time. We will leave instructions for respiratory to try to decrease his FiO2 with a goal sat of 88-92. We will continue with current supportive care measures. Job ID: [id number]
[2019-09-30] MEDS ORDERED: Potassium Chloride 20 MEQ TAB PO ONE (13:00)
--- NOTE | 2019-09-30 15:39 | PRG ---
DATE OF SERVICE: 09/30/2019 SUBJECTIVE: A 74-year-old gentleman, being seen for acute kidney injury. The patient denied any nausea, vomiting, or chest pain. OBJECTIVE: General: The patient is awake and alert. Vital Signs: Afebrile. Pulse , breathing 16, blood pressure was 129/60. HEENT: Head normocephalic and atraumatic. Eyes intact, no ulcers. Nose intact, no ulcers. Ears intact, no ulcers. Neck: Supple. No JVD. Chest: Symmetrical and clear. Cardiovascular: Shows S1 and S2, no rub, no murmur. Gastrointestinal: Abdomen is soft, bowel sounds positive. Extremities: Show no edema or ulcers. Skin: Shows no rash or petechiae. Musculoskeletal: Shows no joint swelling or stiffness. Genitourinary: Shows no Rockwell or CVA tenderness. Neurologic: Motor intact. Cranial nerves intact. LABORATORY DATA: Reviewed. ASSESSMENT AND PLAN: 1. Stage 5 chronic kidney disease with acute kidney injury. 2. Hypertension, stable. 3. Anemia, stable. 4. Hypokalemia, recommend potassium replacement. 5. Hypomagnesemia. We will recheck magnesium. Job ID: [id number]
[2019-09-30] MEDS: Magnesium 2 GM/50 ML 2 GM in Premix Bag 1 BAG IVPB PRN (18:00)
[2019-09-30 18:35] LABS: Anion Gap 13 mmol/L (10-20); BUN (Urea Nitrogen) 64 mg/dL (8.4-25.7); Calc. Creatinine Clearance 28 mL/min (70-130); Calcium 8.3 mg/dL (7.8-10.44); Carbon Dioxide 27 mmol/L (23-31); Chloride 102 mmol/L (98-107); Estimated GFR-MDRD 17; Glucose 200 mg/dL (83-110); Potassium 3.3 mmol/L (3.5-5.1); Sodium 139 mmol/L (136-145)
[2019-09-30] MEDS: Zinc Sulfate 220 MG CAP PO SCH (21:11)
[2019-09-30] MEDS: Acetaminophen 325 MG TAB PO PRN (21:21)
[2019-10-01 05:15] LABS: ALT (SGPT) 85 U/L (8-55); AST (SGOT) 79 U/L (5-34); Albumin 2.8 g/dL (3.4-4.8); Alkaline Phosphatase 138 U/L (40-110); Anion Gap 14 mmol/L (10-20); BUN (Urea Nitrogen) 59 mg/dL (8.4-25.7); Bilirubin, Total 0.8 mg/dL (0.2-1.2); Calc. Creatinine Clearance 29 mL/min (70-130); Calcium 8.3 mg/dL (7.8-10.44); Carbon Dioxide 27 mmol/L (23-31); Chloride 101 mmol/L (98-107); Estimated GFR-MDRD 18; Glucose 207 mg/dL (83-110); Magnesium 1.7 mg/dL (1.6-2.6); Potassium 3.2 mmol/L (3.5-5.1); Protein, Total 6.8 g/dL (5.8-8.1); Sodium 139 mmol/L (136-145)
[2019-10-01 05:39] LABS: Band 12 % (5-11); Eosinophils 1 % (0-10); Hemoglobin 10.5 g/dL (14.0-18.0); Lymphocytes 7 % (21-51); MDiff Complete? YES; Mean Corpuscular HGB CONC 34.7 g/dL (32.0-36.0); Mean Corpuscular Hemoglobin 30.5 pg (27.0-31.0); Mean Corpuscular Volume 87.9 fL (78.0-98.0); Mean Platelet Volume 7.7 fL (7.4-10.4); Monocytes 2 % (0-10); Neutrophil 78 % (42-75); Platelet Count 500 thou/uL (130-400); RBC Distribution Width 11.8 % (11.5-14.5); Red Blood Cell (RBC) Count 3.45 mill/uL (4.70-6.10); White Blood Cell (WBC) Count 11.7 thou/uL (4.8-10.8)
[2019-10-01] MEDS: Insulin Regular 300 UNITS/3 ML VIAL SC PRN ×4 (06:13→21:40)
--- NOTE | 2019-10-01 10:12 | PDOC.HOSPP ---
- Subjective Encounter Date: 10/01/19 Encounter Time: 09:00 Subjective: is comfortable on high flow oxygen no chest pain or palp is eating well, ambulating a bit in room, awake and responds well to verbal stimuli - Objective Vital Signs & Weight: Vital Signs (12 hours) Temp Pulse Resp BP BP Pulse Ox 10/01/19 07:45 94 L 10/01/19 04:00 99.2 F 74 28 H 114/60 91 L 09/30/19 23:49 100.9 F H 90 20 124/68 93 L Weight Weight 230 lb 4.8 oz I&O: 09/30/19 10/01/19 10/02/19 06:59 06:59 06:59 Intake Total 1460 2690 Output Total 3732 3018 Balance -615 765 Result Diagrams: 10/01/19 04:26 10/01/19 04:26 Additional Labs: Accuchecks 09/30/19 09/30/19 09/30/19 21:12 17:46 12:14 POC Glucose 225 H 208 H 310 H Hospitalist ROS - Medication Medications: Active Medications Generic Name Dose Route Start Last Admin Trade Name Freq PRN Reason Stop Dose Admin Acetaminophen 650 mg 09/25/19 21:04 09/30/19 21:21 Tylenol PO 650 mg Q4H PRN Administration Headache/Fever/Mild Pain (1-3) Famotidine 20 mg 09/26/19 09:00 09/30/19 09:08 Pepcid PO 20 mg DAILY ROSALVA Administration Heparin Sodium (Porcine) 5,000 units 09/26/19 09:00 09/30/19 21:11 Heparin SC 5,000 units BID ROSALVA Administration Hydroxychloroquine Sulfate 200 mg 09/28/19 09:00 09/30/19 21:11 Plaquenil PO 10/01/19 21:01 200 mg BID ROSALVA Administration Magnesium Sulfate 2 gm/ Device 50 mls @ 50 mls/hr 09/30/19 12:52 09/30/19 18: 00 IVPB 50 mls DAILYPRN PRN Administration MAG LEVEL < 2.0 Cefepime HCl 1 gm/ Sodium 100 mls @ 200 mls/hr 09/30/19 21:00 09/30/19 21:11 Chloride IVPB 100 mls 2100 ROSALVA Administration Insulin Human Regular 0 units 09/26/19 08:17 10/01/19 06:13 Humulin R SC 2 unit .MILD SLIDING SCALE PRN Administration Mild Correctional Scale Insulin Human Regular 0 units 09/26/19 08:27 09/30/19 21:12 Humulin R SC 2 unit .BEDTIME SLIDING SC PRN Administration Bedtime Correctional Scale Sodium Chloride 10 ml 09/26/19 09:00 09/30/19 21:12 Flush - Normal Saline IVF 10 ml Q12HR ROSALVA Administration Zinc Sulfate 220 mg 09/30/19 21:00 09/30/19 21:11 Zinc Sulfate PO 220 mg 2100 ROSALVA Administration - Exam General Appearance: awake alert Eye: PERRL, anicteric sclera ENT: no oropharyngeal lesions, moist mucosa Neck: supple, no JVD Heart: RRR, no murmur Respiratory: no wheezes, rales, rhonchi Gastrointestinal: soft, non-tender, non-distended, normal bowel sounds Extremities: no cyanosis, no edema Neurological: cranial nerve grossly intact, no focal deficits Psychiatric: A&O x 3 Hosp A/P (1) COVID-19 virus detected Code(s): U07.1 - COVID-19 Status: Acute (2) PNA (pneumonia) Code(s): J18.9 - PNEUMONIA, UNSPECIFIED ORGANISM Status: Acute Qualifiers: Laterality: bilateral (3) Acute respiratory failure with hypoxia Code(s): J96.01 - ACUTE RESPIRATORY FAILURE WITH HYPOXIA Status: Acute (4) IJEOMA (acute kidney injury) Code(s): N17.9 - ACUTE KIDNEY FAILURE, UNSPECIFIED Status: Acute (5) CKD (chronic kidney disease) stage 4, GFR 15-29 ml/min Code(s): N18.4 - CHRONIC KIDNEY DISEASE, STAGE 4 (SEVERE) Status: Chronic (6) HTN (hypertension) Code(s): I10 - ESSENTIAL (PRIMARY) HYPERTENSION Status: Chronic Qualifiers: Hypertension type: essential hypertension Qualified Code(s): I10 - Essential (primary) hypertension (7) Sepsis Code(s): A41.9 - SEPSIS, UNSPECIFIED ORGANISM Status: Acute Qualifiers: Sepsis acute organ dysfunction status: with acute organ dysfunction Severe sepsis acute organ dysfunction type: acute renal failure Severe sepsis shock status: without septic shock (8) DM type 2 (diabetes mellitus, type 2) Status: Chronic Qualifiers: Diabetes mellitus termite control servicer insulin use: without [facility] use Diabetes mellitus complication status: with kidney complications Diabetes mellitus complication detail: with chronic kidney disease Chronic kidney disease stage : stage 4 (severe) Qualified Code(s): E11.22 - Type 2 diabetes mellitus with diabetic chronic kidney disease; N18.4 - Chronic kidney disease, stage 4 (severe ) (9) Dyslipidemia Code(s): E78.5 - HYPERLIPIDEMIA, UNSPECIFIED Status: Chronic (10) Obesity (BMI 30.0-34.9) Code(s): E66.9 - OBESITY, UNSPECIFIED Status: Chronic - Plan is on high flow oxygen and tolerating well still has off and on fever, renal function is getting better is oriented but hard of hearing finished 4 days of zithromax and is currently on hydoxychloroquine, cefepime, znso4 d/w Lilian Horta and gave an update yesterday, unable to reach her this morning. code status was revisited specifically if he wants to go on ventilator if he gets worse, he and family have decided to be full code for now.
[2019-10-01] MEDS: Heparin 5,000 UNITS/ML VIAL SC SCH ×2 (10:47→21:39)
[2019-10-01] MEDS: Hydroxychloroquine Sulfate 200 MG TAB PO SCH ×2 (10:48→21:39)
[2019-10-01] MEDS: Acetaminophen 325 MG TAB PO PRN ×2 (10:48→17:52)
[2019-10-01] MEDS: Famotidine 20 MG TAB PO SCH (10:48)
[2019-10-01] MEDS: Magnesium 2 GM/50 ML 2 GM in Premix Bag 1 BAG IVPB PRN (10:52)
--- NOTE | 2019-10-01 15:25 | PRG ---
DATE OF SERVICE: 10/01/2019 SUBJECTIVE: Diomedes Baugh is clinically unchanged. The nurses report he says he is feeling better. The greenhouse technician checked on him today with the nursing staff. They said he was improved. He did switch the room because up to 40 L a minute overnight. These have turned back down to 30 L a minute. His oximetry is 97, his heart rate in the 80s, his respiratory rate in the 20s, blood pressure has been stable. He had low-grade temperature elevation. IMPRESSION: COVID pneumonitis, clinically stable. Hopefully . He was not examined because of inadequate personal protective care. Job ID: [id number]
--- NOTE | 2019-10-01 15:49 | CON ---
DATE OF CONSULTATION: 10/01/2019 REASON FOR CONSULTATION: COVID-19 infection. HISTORY OF PRESENT ILLNESS: A 74-year-old with history of type 2 diabetes, hypertension, and hyperlipidemia, who presented to the ER on 09/24 because of fever up to 101.5, a little bit of lethargy. He was noted to be hypoxemic, had abnormal lung examination. Initial temperature was 101.1, O2 saturation 94 on 2 L, and pulse 83. He was alert and oriented x3. The exam showed inspiratory crackles at the bases. Remainder of the examination was not remarkable. Other findings are white cell count 7.1, hemoglobin 12.3, platelets 288, 87% neutrophils, and the lymphocytes of 600. His D-dimer was not measured on arrival, it was elevated at 4.85 on measure 2 days ago. His ferritin was 2300. On 09/27, the COVID-19 was detected. Currently, he is sitting after eating lunch. He is able to smell normally. Denies any headaches. No visual symptoms. Mild sore throat. Some cough, but not much sputum production. No chest pain. No abdominal pain or diarrhea. Moves extremities equally. PAST MEDICAL HISTORY: 1. Type 2 diabetes. 2. Hypertension. 3. Hyperlipidemia. SURGICAL HISTORY: Tonsillectomy. SOCIAL HISTORY: Retired. He just recently returned from [place] where he went to stay in his house. He lives from time to time. He lives in [place] with his . The is not sick according to him. Never smoker. No alcoholic beverage use. ALLERGIES: NONE. CURRENT MEDICATIONS: 1. Cefepime. 2. Pepcid. 3. Plaquenil. 4. Zinc. PHYSICAL EXAMINATION: VITAL SIGNS: T-max 101.3 and then 101.9 recently and he is now 99.5, pulse ranged from 58 to 85, O2 saturation has ranged from 90 to 97 and now is 96 with high- flow O2, and BP 110/58. SKIN: Normal. The patient has a peripheral IV access. Voiding in the urinal. GENERAL: Awake, alert, and oriented. HEENT: Ocular movements conjugate. Oral cavity, somewhat moist. NECK: Supple. LUNGS: Bibasilar inspiratory crackles. No wheezing. HEART: S1 and S2. Regular rate. ABDOMEN: Soft and not distended. LABORATORY DATA: White cell count is 11.1, hemoglobin 10.7, platelets 456, 6% bands, and lymphocyte count 0.9. Chest x-ray with multifocal pneumonia, which appears worse. ASSESSMENT: 1. Type 2 diabetes. 2. Hypertension. 3. COVID-19 infection with severe manifestation, still in a kind of a standstill , not yet resolved inflammatory process or at least no evidence of resolution. CRP has remained high and the ferritin has remained high as well. The D-dimer has been measured once and is elevated 2 days ago. The lymphocyte count is a little bit better than on admission. He had to be switched to high-flow oxygen supplementation and has started on Plaquenil as per protocol. Job ID: [id number] MTDD
--- NOTE | 2019-10-01 15:59 | PRG ---
DATE OF SERVICE: 10/01/2019 SUBJECTIVE: A 74-year-old gentleman is being seen for acute kidney injury. The patient denied any nausea, vomiting, or chest pain. OBJECTIVE: GENERAL: The patient is awake and alert. VITAL SIGNS: Afebrile, pulse 75, breathing 16, blood pressure 134/68. HEENT: Head normocephalic and atraumatic. Eyes intact, no ulcers. Nose intact, no ulcers. Ears intact, no ulcers. NECK: Supple. No JVD. CHEST: Symmetrical and clear. CARDIOVASCULAR: Shows S1 and S2, no rub, no murmur. GASTROINTESTINAL: Abdomen is soft, bowel sounds positive. EXTREMITIES: Show no edema or ulcers. SKIN: Shows no rash or petechiae. MUSCULOSKELETAL: Shows no joint swelling or stiffness. GENITOURINARY: Shows no Rockwell or CVA tenderness. NEUROLOGIC: Motor intact. Cranial nerves intact. LABORATORY DATA: Reviewed. ASSESSMENT: 1. Acute kidney injury with chronic kidney disease, stage 4, improved. 2. Acute kidney injury, stable. 3. Hypokalemia, recommend potassium replacement. 4. Hypermagnesemia, resolved. No indication for dialysis at this time. Job ID: [id number]
[2019-10-01] MEDS: Cefepime 1 GM in Sodium Chloride 0.9% 100 ML IVPB SCH (21:38)
[2019-10-01] MEDS: Zinc Sulfate 220 MG CAP PO SCH (21:39)
[2019-10-02] MEDS: Acetaminophen 325 MG TAB PO PRN (03:09)
[2019-10-02 05:19] LABS: ALT (SGPT) 78 U/L (8-55); AST (SGOT) 59 U/L (5-34); Albumin 2.7 g/dL (3.4-4.8); Alkaline Phosphatase 138 U/L (40-110); Anion Gap 15 mmol/L (10-20); BUN (Urea Nitrogen) 54 mg/dL (8.4-25.7); Bilirubin, Total 1.1 mg/dL (0.2-1.2); Calc. Creatinine Clearance 35 mL/min (70-130); Calcium 8.1 mg/dL (7.8-10.44); Carbon Dioxide 27 mmol/L (23-31); Chloride 97 mmol/L (98-107); Estimated GFR-MDRD 22; Glucose 231 mg/dL (83-110); Protein, Total 6.7 g/dL (5.8-8.1); Sodium 136 mmol/L (136-145)
[2019-10-02 05:43] LABS: Hemoglobin 10.1 g/dL (14.0-18.0); Mean Corpuscular HGB CONC 33.5 g/dL (32.0-36.0); Mean Corpuscular Hemoglobin 29.3 pg (27.0-31.0); Mean Corpuscular Volume 87.5 fL (78.0-98.0); Platelet Count 520 thou/uL (130-400); RBC Distribution Width 11.8 % (11.5-14.5); Red Blood Cell (RBC) Count 3.43 mill/uL (4.70-6.10); White Blood Cell (WBC) Count 12.3 thou/uL (4.8-10.8)
[2019-10-02 06:01] LABS: Band 2 % (5-11); Eosinophils 3 % (0-10); Lymphocytes 7 % (21-51); MDiff Complete? YES; Monocytes 3 % (0-10); Neutrophil 85 % (42-75)
[2019-10-02] MEDS: Insulin Regular 300 UNITS/3 ML VIAL SC PRN ×3 (06:25→20:43)
[2019-10-02] MEDS ORDERED: Potassium Chloride 40 MEQ, Magnesium Sulfate 2 GM in Sodium Chloride 0.9% 250 ML 250 ML IVPB ONE (08:45)
[2019-10-02] MEDS: Heparin 5,000 UNITS/ML VIAL SC SCH ×2 (09:26→20:44)
[2019-10-02] MEDS: Famotidine 20 MG TAB PO SCH (09:26)
--- NOTE | 2019-10-02 10:44 | PDOC.HOSPP ---
- Subjective Encounter Date: 10/02/19 Encounter Time: 10:15 Subjective: awake, sitting in chair, no new sob is comfortable on high flow says he is eating, has difficulty sleeping at night - Objective Vital Signs & Weight: Vital Signs (12 hours) Temp Pulse Resp BP BP Pulse Ox 10/02/19 09:12 99.8 F H 75 28 H 144/72 H 91 L 10/02/19 03:10 100.2 F H 78 22 H 128/64 10/02/19 00:51 90 L 10/02/19 00:00 101.4 F H 77 20 132/61 95 Weight Weight 230 lb 4.8 oz I&O: 10/01/19 10/02/19 10/03/19 06:59 06:59 06:59 Intake Total 2690 3290 Output Total 1925 2350 Balance 765 940 Result Diagrams: 10/02/19 04:33 10/02/19 04:33 Additional Labs: Accuchecks 10/01/19 10/01/19 10/01/19 21:38 17:52 10:42 POC Glucose 210 H 268 H 255 H Hospitalist ROS - Medication Medications: Active Medications Generic Name Dose Route Start Last Admin Trade Name Freq PRN Reason Stop Dose Admin Acetaminophen 650 mg 09/25/19 21:04 10/02/19 03:09 Tylenol PO 650 mg Q4H PRN Administration Headache/Fever/Mild Pain (1-3) Famotidine 20 mg 09/26/19 09:00 10/02/19 09:26 Pepcid PO 20 mg DAILY ROSALVA Administration Heparin Sodium (Porcine) 5,000 units 09/26/19 09:00 10/02/19 09:26 Heparin SC 5,000 units BID ROSALVA Administration Magnesium Sulfate 2 gm/ Device 50 mls @ 50 mls/hr 09/30/19 12:52 10/01/19 10: 52 IVPB 50 mls DAILYPRN PRN Administration MAG LEVEL < 2.0 Cefepime HCl 1 gm/ Sodium 100 mls @ 200 mls/hr 09/30/19 21:00 10/01/19 21:38 Chloride IVPB 100 mls 2100 ROSALVA Administration Potassium Chloride 40 meq/ 274 mls @ 68.5 mls/hr 10/02/19 08:45 10/02/19 09: 27 Magnesium Sulfate 2 gm/ Sodium IVPB 10/02/19 12:44 274 mls Chloride ONE ONE Administration Insulin Human Regular 0 units 09/26/19 08:17 10/01/19 17:51 Humulin R SC 4 unit .MILD SLIDING SCALE PRN Administration Mild Correctional Scale Insulin Human Regular 0 units 09/26/19 08:27 10/02/19 06:25 Humulin R SC 2 unit .BEDTIME SLIDING SC PRN Administration Bedtime Correctional Scale Sodium Chloride 10 ml 09/26/19 09:00 10/02/19 09:27 Flush - Normal Saline IVF 10 ml Q12HR ROSALVA Administration Zinc Sulfate 220 mg 09/30/19 21:00 10/01/19 21:39 Zinc Sulfate PO 220 mg 2100 ROSALVA Administration - Exam General Appearance: awake alert Eye: PERRL, anicteric sclera ENT: no oropharyngeal lesions, moist mucosa Neck: supple, no JVD Heart: RRR, no murmur Respiratory: no wheezes, rales, rhonchi Gastrointestinal: soft, non-tender, non-distended, normal bowel sounds Extremities: no cyanosis, no edema Neurological: cranial nerve grossly intact, no focal deficits Psychiatric: A&O x 3 Hosp A/P (1) COVID-19 virus detected Code(s): U07.1 - COVID-19 Status: Acute (2) PNA (pneumonia) Code(s): J18.9 - PNEUMONIA, UNSPECIFIED ORGANISM Status: Acute Qualifiers: Laterality: bilateral (3) Acute respiratory failure with hypoxia Code(s): J96.01 - ACUTE RESPIRATORY FAILURE WITH HYPOXIA Status: Acute (4) IJEOMA (acute kidney injury) Code(s): N17.9 - ACUTE KIDNEY FAILURE, UNSPECIFIED Status: Acute (5) CKD (chronic kidney disease) stage 4, GFR 15-29 ml/min Code(s): N18.4 - CHRONIC KIDNEY DISEASE, STAGE 4 (SEVERE) Status: Chronic (6) HTN (hypertension) Code(s): I10 - ESSENTIAL (PRIMARY) HYPERTENSION Status: Chronic Qualifiers: Hypertension type: essential hypertension Qualified Code(s): I10 - Essential (primary) hypertension (7) Sepsis Code(s): A41.9 - SEPSIS, UNSPECIFIED ORGANISM Status: Acute Qualifiers: Sepsis acute organ dysfunction status: with acute organ dysfunction Severe sepsis acute organ dysfunction type: acute renal failure Severe sepsis shock status: without septic shock (8) DM type 2 (diabetes mellitus, type 2) Status: Chronic Qualifiers: Diabetes mellitus intermediate insulin use: without terminal worker use Diabetes mellitus complication status: with kidney complications Diabetes mellitus complication detail: with chronic kidney disease Chronic kidney disease stage : stage 4 (severe) Qualified Code(s): E11.22 - Type 2 diabetes mellitus with diabetic chronic kidney disease; N18.4 - Chronic kidney disease, stage 4 (severe ) (9) Dyslipidemia Code(s): E78.5 - HYPERLIPIDEMIA, UNSPECIFIED Status: Chronic (10) Obesity (BMI 30.0-34.9) Code(s): E66.9 - OBESITY, UNSPECIFIED Status: Chronic - Plan is on high flow oxygen and tolerating well still has off and on fever, renal function is getting better is oriented but hard of hearing finished 4 days of zithromax and full course of hydoxychloroquine, cefepime, znso4 Not sure if he is a candidate for exp agents in view of ongoing fever upto 101 and elevated markers despite finishing full course of treatment. code status was revisited specifically if he wants to go on ventilator if he gets worse, he and family have decided to be full code for now (09/30/2019).
--- NOTE | 2019-10-02 11:14 | PRG ---
DATE OF SERVICE: 10/02/2019 SUBJECTIVE: Mr. Baugh was sitting in his easy chair while I was in the room this morning. He said he did not feel any differently than he had. OBJECTIVE: VITAL SIGNS: Continued to demonstrate intermittent fever with a T-max as high as 101.5 yesterday, current temperature is 99.8, his pulse is running in the 70s, O2 saturation in the low 90s on a high-flow nasal cannula at 30%, his blood pressure is 144/72. HEENT: Unremarkable. NECK: No adenopathy or JVD. LUNGS: Scattered inspiratory crackles, best heard posteriorly. CARDIAC: S1, S2. Regular. ABDOMEN: Soft. EXTREMITIES: No edema. LABORATORY DATA: White blood cell count 12, hematocrit 30, platelet count 520. Sodium 136, potassium 3, chloride 97, CO2 of 27, BUN 54, creatinine 2.7, glucose 231. Ferritin remains high at 2196. C-reactive protein is 25. ASSESSMENT: COVID-19 with viral pneumonia, so far very slowly responsive to therapy. PLAN: I am going to add some low-dose corticosteroids for rescue therapy to see if that will help. This may adversely affect his blood sugar for a few days. We will follow. Job ID: [id number]
[2019-10-02] MEDS: methylPREDNISolone Sod Succ 40 MG VIAL IVP SCH ×3 (12:22→23:48)
--- NOTE | 2019-10-02 12:59 | PRG ---
DATE OF SERVICE: 10/02/2019 SUBJECTIVE: The patient is on isolation. OBJECTIVE: VITAL SIGNS: Temperature 99.8, heart Rate 75, respiratory rate 20, and blood pressure 144/72. exam not peformed due to COVID isolation status. LABORATORY DATA: Potassium 3.0, BUN is 54, and creatinine is 2.7. ASSESSMENT AND PLAN: 1. Acute kidney injury. Renal function is getting better. 2. Hypokalemia, replace. 3. Hypomagnesemia. 4. Elevated liver enzymes. 5. COVID-19 infection. 6. Renal function is getting better. Continue close monitoring. Job ID: [id number] MTDD
[2019-10-02] MEDS: Cefepime 1 GM in Sodium Chloride 0.9% 100 ML IVPB SCH (20:42)
[2019-10-02] MEDS: Zinc Sulfate 220 MG CAP PO SCH (20:44)
[2019-10-03] MEDS: methylPREDNISolone Sod Succ 40 MG VIAL IVP SCH ×4 (05:19→23:19)
[2019-10-03] MEDS: Insulin Regular 300 UNITS/3 ML VIAL SC PRN ×4 (05:26→20:41)
[2019-10-03 05:38] LABS: ALT (SGPT) 72 U/L (8-55); AST (SGOT) 46 U/L (5-34); Albumin 2.8 g/dL (3.4-4.8); Alkaline Phosphatase 156 U/L (40-110); Anion Gap 16 mmol/L (10-20); BUN (Urea Nitrogen) 56 mg/dL (8.4-25.7); Bilirubin, Total 0.7 mg/dL (0.2-1.2); Calc. Creatinine Clearance 38 mL/min (70-130); Calcium 8.3 mg/dL (7.8-10.44); Carbon Dioxide 26 mmol/L (23-31); Chloride 98 mmol/L (98-107); Estimated GFR-MDRD 25; Globulin 4.1 g/dL (2.4-3.5); Glucose 429 mg/dL (83-110); Potassium 3.7 mmol/L (3.5-5.1); Protein, Total 6.9 g/dL (5.8-8.1); Sodium 136 mmol/L (136-145)
[2019-10-03 06:28] LABS: Hemoglobin 10.7 g/dL (14.0-18.0); Mean Corpuscular HGB CONC 33.3 g/dL (32.0-36.0); Mean Corpuscular Hemoglobin 29.8 pg (27.0-31.0); Mean Corpuscular Volume 89.6 fL (78.0-98.0); Mean Platelet Volume 8.4 fL (7.4-10.4); Platelet Count 531 thou/uL (130-400); RBC Distribution Width 11.9 % (11.5-14.5); Red Blood Cell (RBC) Count 3.59 mill/uL (4.70-6.10)
[2019-10-03 06:36] LABS: Band 12 % (5-11); Lymphocytes 4 % (21-51); MDiff Complete? YES; Monocytes 2 % (0-10); Neutrophil 82 % (42-75)
--- NOTE | 2019-10-03 08:43 | PRG ---
DATE OF SERVICE: 10/03/2019 SUBJECTIVE: Mr. Baugh has been weaned off high-flow oxygen yesterday since he started the steroids. He is now on room air with O2 sats about 88%. OBJECTIVE: His pulse is 82, blood pressure is 133/69, and temperature 97.8. His physical exam is unchanged. LABORATORY DATA: Sodium 136, potassium 3.7, chloride 98, CO2 of 26, BUN 56, creatinine 2.5, and glucose 429. White blood cell count 10.0, hematocrit 32.2, and platelet count 531. ASSESSMENT: 1. COVID-19 infection with slowly improving hypoxemia. 2. Acute renal failure, improved. PLAN: Continue supportive care. Hopefully begin to wean the steroids by tomorrow and discharge home shortly after. Job ID: [id number]
[2019-10-03] MEDS: Famotidine 20 MG TAB PO SCH (09:16)
[2019-10-03] MEDS: Heparin 5,000 UNITS/ML VIAL SC SCH ×2 (09:16→20:28)
[2019-10-03] MEDS: Insulin Glargine 20 UNITS in Pre-Filled Syringe 1 EACH SC SCH ×2 (09:16→20:29)
--- NOTE | 2019-10-03 10:42 | PDOC.HOSPP ---
- Subjective Encounter Date: 10/03/19 Encounter Time: 09:00 Subjective: is sitting in chair, off oxygen and high flow no sob, says he feels better - Objective Vital Signs & Weight: Vital Signs (12 hours) Temp Pulse Resp BP BP Pulse Ox 10/03/19 09:14 97.6 F 74 22 H 139/74 90 L 10/03/19 07:55 88 L 10/03/19 03:01 97.8 F 82 15 133/69 87 L 10/02/19 23:45 98.7 F 63 13 119/59 L 92 L Weight Weight 230 lb 4.8 oz I&O: 10/02/19 10/03/19 10/04/19 06:59 06:59 06:59 Intake Total 3290 2019 Output Total 0 2074 Balance 940 -55 Result Diagrams: 10/03/19 05:05 10/03/19 05:05 Additional Labs: Accuchecks 10/02/19 10/02/19 10/02/19 20:39 15:55 11:04 POC Glucose 408 H 336 H 285 H Hospitalist ROS - Medication Medications: Active Medications Generic Name Dose Route Start Last Admin Trade Name Freq PRN Reason Stop Dose Admin Acetaminophen 650 mg 09/25/19 21:04 10/02/19 03:09 Tylenol PO 650 mg Q4H PRN Administration Headache/Fever/Mild Pain (1-3) Famotidine 20 mg 09/26/19 09:00 10/03/19 09:16 Pepcid PO 20 mg DAILY ROSALVA Administration Heparin Sodium (Porcine) 5,000 units 09/26/19 09:00 10/03/19 09:16 Heparin SC 5,000 units BID ROSALVA Administration Magnesium Sulfate 2 gm/ Device 50 mls @ 50 mls/hr 09/30/19 12:52 10/01/19 10: 52 IVPB 50 mls DAILYPRN PRN Administration MAG LEVEL < 2.0 Cefepime HCl 1 gm/ Sodium 100 mls @ 200 mls/hr 09/30/19 21:00 10/02/19 20:42 Chloride IVPB 100 mls 2100 ROSALVA Administration Insulin Glargine 20 units/ 0.2 mls @ 0 mls/hr 10/03/19 09:00 10/03/19 09:16 Miscellaneous Medication SC 0.2 mls BID ROSALVA Administration Insulin Human Regular 0 units 09/26/19 08:17 10/03/19 05:26 Humulin R SC 6 unit .MILD SLIDING SCALE PRN Administration Mild Correctional Scale Insulin Human Regular 0 units 09/26/19 08:27 10/02/19 20:43 Humulin R SC 5 unit .BEDTIME SLIDING SC PRN Administration Bedtime Correctional Scale Methylprednisolone Sodium Succinate 20 mg 10/02/19 12:00 10/03/19 05:19 Solu-Medrol IVP 20 mg Q6HR ROSALVA Administration Sodium Chloride 10 ml 09/26/19 09:00 10/03/19 09:16 Flush - Normal Saline IVF 10 ml Q12HR ROSALVA Administration Sodium Chloride 10 ml 09/26/19 08:21 10/03/19 05:19 Flush - Normal Saline IVF 10 ml PRN PRN Administration Saline Flush Zinc Sulfate 220 mg 09/30/19 21:00 10/02/19 20:44 Zinc Sulfate PO 220 mg 2100 ROSALVA Administration - Exam General Appearance: awake alert Eye: PERRL, anicteric sclera ENT: no oropharyngeal lesions, moist mucosa Neck: supple, no JVD Heart: RRR, no murmur Respiratory: no wheezes, rales, rhonchi Gastrointestinal: soft, non-tender, non-distended, normal bowel sounds Extremities: no cyanosis, no edema Neurological: cranial nerve grossly intact, no focal deficits Psychiatric: A&O x 3 Hosp A/P (1) COVID-19 virus detected Code(s): U07.1 - COVID-19 Status: Acute (2) PNA (pneumonia) Code(s): J18.9 - PNEUMONIA, UNSPECIFIED ORGANISM Status: Acute Qualifiers: Laterality: bilateral (3) Acute respiratory failure with hypoxia Code(s): J96.01 - ACUTE RESPIRATORY FAILURE WITH HYPOXIA Status: Acute (4) IJEOMA (acute kidney injury) Code(s): N17.9 - ACUTE KIDNEY FAILURE, UNSPECIFIED Status: Acute (5) CKD (chronic kidney disease) stage 4, GFR 15-29 ml/min Code(s): N18.4 - CHRONIC KIDNEY DISEASE, STAGE 4 (SEVERE) Status: Chronic (6) HTN (hypertension) Code(s): I10 - ESSENTIAL (PRIMARY) HYPERTENSION Status: Chronic Qualifiers: Hypertension type: essential hypertension Qualified Code(s): I10 - Essential (primary) hypertension (7) Sepsis Code(s): A41.9 - SEPSIS, UNSPECIFIED ORGANISM Status: Acute Qualifiers: Sepsis acute organ dysfunction status: with acute organ dysfunction Severe sepsis acute organ dysfunction type: acute renal failure Severe sepsis shock status: without septic shock (8) DM type 2 (diabetes mellitus, type 2) Status: Chronic Qualifiers: Diabetes mellitus intermediate project manager insulin use: without intermediate project manager use Diabetes mellitus complication status: with kidney complications Diabetes mellitus complication detail: with chronic kidney disease Chronic kidney disease stage : stage 4 (severe) Qualified Code(s): E11.22 - Type 2 diabetes mellitus with diabetic chronic kidney disease; N18.4 - Chronic kidney disease, stage 4 (severe ) (9) Dyslipidemia Code(s): E78.5 - HYPERLIPIDEMIA, UNSPECIFIED Status: Chronic (10) Obesity (BMI 30.0-34.9) Code(s): E66.9 - OBESITY, UNSPECIFIED Status: Chronic - Plan is on room air and is saturating around 88-90% this am tmax is 99, renal function is getting better is oriented but hard of hearing finished 4 days of zithromax and full course of hydoxychloroquine, on steroids, cefepime, znso4 has responded well to steroids with resolution of fever and is off high flow oxygen today. encourage po intake code status was revisited specifically if he wants to go on ventilator if he gets worse, he and family have decided to be full code for now (09/30/2019).
--- NOTE | 2019-10-03 16:38 | PRG ---
DATE OF SERVICE: 10/03/2019 SUBJECTIVE: The patient is on isolation. OBJECTIVE: VITAL SIGNS: Temperature 98.4, pulse 67, respiratory rate 22, and blood pressure 133/71. LABORATORY DATA: Potassium 3.7, BUN is 56, and creatinine is 2.5 from 2.7. ASSESSMENT AND PLAN: 1. Acute kidney injury, much better. 2. Hypokalemia and hypomagnesemia, we will monitor. 3. Elevated liver enzymes. 4. Coronavirus disease-19 infection. Continue treatment per Primary Team. I think creatinine is getting better. I will sign off. Please call back with any questions. Avoid nephrotoxins and continue supportive care. Job ID: [id number]
[2019-10-03] MEDS: Cefepime 1 GM in Sodium Chloride 0.9% 100 ML IVPB SCH (20:28)
[2019-10-03] MEDS: Zinc Sulfate 220 MG CAP PO SCH (20:30)
[2019-10-04] MEDS: methylPREDNISolone Sod Succ 40 MG VIAL IVP SCH (05:52)
[2019-10-04 05:59] LABS: Hemoglobin 11.3 g/dL (14.0-18.0); Mean Corpuscular HGB CONC 33.2 g/dL (32.0-36.0); Mean Corpuscular Hemoglobin 29.5 pg (27.0-31.0); Mean Platelet Volume 8.4 fL (7.4-10.4); Platelet Count 592 thou/uL (130-400); RBC Distribution Width 11.8 % (11.5-14.5); Red Blood Cell (RBC) Count 3.83 mill/uL (4.70-6.10); White Blood Cell (WBC) Count 18.1 thou/uL (4.8-10.8)
[2019-10-04] MEDS: Insulin Regular 300 UNITS/3 ML VIAL SC PRN ×3 (05:59→18:26)
[2019-10-04 06:00] LABS: ALT (SGPT) 71 U/L (8-55); AST (SGOT) 69 U/L (5-34); Albumin 2.9 g/dL (3.4-4.8); Alkaline Phosphatase 138 U/L (40-110); Anion Gap 16 mmol/L (10-20); BUN (Urea Nitrogen) 61 mg/dL (8.4-25.7); Bilirubin, Total 0.7 mg/dL (0.2-1.2); Calc. Creatinine Clearance 43 mL/min (70-130); Calcium 8.6 mg/dL (7.8-10.44); Carbon Dioxide 27 mmol/L (23-31); Chloride 101 mmol/L (98-107); Estimated GFR-MDRD 28; Globulin 4.1 g/dL (2.4-3.5); Glucose 293 mg/dL (83-110); Potassium 3.8 mmol/L (3.5-5.1); Sodium 140 mmol/L (136-145)
[2019-10-04 06:14] LABS: Band 8 % (5-11); Lymphocytes 3 % (21-51); MDiff Complete? YES; Monocytes 1 % (0-10); Neutrophil 88 % (42-75); Platelet Morphology Comment Appears Increased
[2019-10-04] MEDS: Aspirin 81 mg Enteric Coated Tablet PO SCH (07:57)
[2019-10-04] MEDS: Enoxaparin Sodium 40 MG/0.4 ML SYRINGE SC SCH ×2 (07:57→08:08)
[2019-10-04] MEDS: Famotidine 20 MG TAB PO SCH (07:58)
[2019-10-04] MEDS: Heparin 5,000 UNITS/ML VIAL SC SCH ×2 (08:30→20:45)
[2019-10-04] MEDS ORDERED: Aspirin 325 mg Enteric Coated Tablet PO SCH (09:00)
[2019-10-04] MEDS: Insulin Glargine 30 UNITS in Pre-Filled Syringe 1 EACH SC SCH ×2 (09:39→20:46)
--- NOTE | 2019-10-04 10:17 | PRG ---
DATE OF SERVICE: 10/04/2019 SUBJECTIVE: Mr. Baugh is doing well. His oxygen saturation was 93% on room air. When I walked in the room this morning, the nurse says he does drop a little bit when he is walking around. OBJECTIVE: VITAL SIGNS: Currently, his temperature is 95, pulse 63, respirations 20, blood pressure 152/80. HEENT: Unremarkable. NECK: No adenopathy or JVD. LUNGS: Clear. CARDIAC: S1, S2. Regular. ABDOMEN: Soft. EXTREMITIES: No edema. Last documented fever was 101.4 on 10/02/2019 at midnight. Therefore, now he has been over 48 hours without significant fever. LABORATORY DATA: Sodium 140, potassium 3.8, chloride 101, CO2 of 27, BUN 61, creatinine 2.3, glucose 293. White blood cell count 18, hematocrit 34.1, and platelet count 592. ASSESSMENT: 1. Resolving COVID-19 pneumonia. 2. Improved renal insufficiency. 3. Hyperglycemia secondary to steroids. PLAN: I am going to go ahead and cut his steroid dose down. I would think he is a candidate to go home within the next 24 to 48 hours if he remains fever free and does not need the oxygen. I would wean the steroid slowly over about 10 days. Job ID: [id number]
--- NOTE | 2019-10-04 15:19 | PDOC.HOSPP ---
- Subjective Encounter Date: 10/04/19 Encounter Time: 10:00 Subjective: sitting in chair, no sob, is on room air and saturating well around 90% no chest pain, he does not like food here - Objective Vital Signs & Weight: Vital Signs (12 hours) Temp Pulse Resp BP Pulse Ox 10/04/19 11:22 97.1 F L 85 18 158/92 H 91 L 10/04/19 08:03 95 F L 63 20 152/80 H 91 L 10/04/19 08:00 91 L 10/04/19 04:00 98.6 F 82 19 118/68 93 L Weight Weight 230 lb 4.8 oz I&O: 10/03/19 10/04/19 10/05/19 06:59 06:59 06:59 Intake Total 2019 1409 Output Total 2074 155 Balance -55 -140 Result Diagrams: 10/04/19 04:56 10/04/19 04:56 Additional Labs: Accuchecks 10/04/19 10/04/19 10/03/19 11:25 05:59 20:41 POC Glucose 325 H 321 H 297 H 10/03/19 16:38 POC Glucose 338 H Hospitalist ROS - Medication Medications: Active Medications Generic Name Dose Route Start Last Admin Trade Name Freq PRN Reason Stop Dose Admin Acetaminophen 650 mg 09/25/19 21:04 10/02/19 03:09 Tylenol PO 650 mg Q4H PRN Administration Headache/Fever/Mild Pain (1-3) Aspirin 81 mg 10/04/19 09:00 10/04/19 07:57 Ecotrin PO 81 mg DAILY ROSALVA Administration Famotidine 20 mg 09/26/19 09:00 10/04/19 07:58 Pepcid PO 20 mg DAILY ROSALVA Administration Glipizide 10 mg 10/04/19 08:00 10/04/19 07:58 Glucotrol Xl PO 10 mg QAM-WM ROSALVA Administration Heparin Sodium (Porcine) 5,000 units 09/26/19 09:00 10/04/19 08:30 Heparin SC 5,000 units BID ROSALVA Administration Magnesium Sulfate 2 gm/ Device 50 mls @ 50 mls/hr 09/30/19 12:52 10/01/19 10: 52 IVPB 50 mls DAILYPRN PRN Administration MAG LEVEL < 2.0 Cefepime HCl 1 gm/ Sodium 100 mls @ 200 mls/hr 09/30/19 21:00 10/03/19 20:28 Chloride IVPB 100 mls 2100 ROSALVA Administration Insulin Glargine 30 units/ 0.3 mls @ 0 mls/hr 10/04/19 09:00 10/04/19 09:39 Miscellaneous Medication SC 0.3 mls BID ROSALVA Administration Insulin Human Regular 0 units 09/26/19 08:17 10/04/19 11:28 Humulin R SC 5 unit .MILD SLIDING SCALE PRN Administration Mild Correctional Scale Insulin Human Regular 0 units 09/26/19 08:27 10/03/19 20:41 Humulin R SC 3 unit .BEDTIME SLIDING SC PRN Administration Bedtime Correctional Scale Sodium Chloride 10 ml 09/26/19 09:00 10/04/19 08:30 Flush - Normal Saline IVF 10 ml Q12HR ROSALVA Administration Sodium Chloride 10 ml 09/26/19 08:21 10/03/19 05:19 Flush - Normal Saline IVF 10 ml PRN PRN Administration Saline Flush Zinc Sulfate 220 mg 09/30/19 21:00 10/03/19 20:30 Zinc Sulfate PO 220 mg 2100 ROSALVA Administration - Exam General Appearance: awake alert Eye: PERRL, anicteric sclera ENT: no oropharyngeal lesions, dry oral mucosa Neck: supple, no JVD Heart: RRR, no murmur Respiratory: no wheezes, no rales, rhonchi Gastrointestinal: soft, non-tender, non-distended, normal bowel sounds Extremities: no cyanosis, no edema Neurological: cranial nerve grossly intact, no focal deficits Psychiatric: normal affect, A&O x 3 Hosp A/P (1) COVID-19 virus detected Code(s): U07.1 - COVID-19 Status: Acute (2) PNA (pneumonia) Code(s): J18.9 - PNEUMONIA, UNSPECIFIED ORGANISM Status: Acute Qualifiers: Laterality: bilateral (3) Acute respiratory failure with hypoxia Code(s): J96.01 - ACUTE RESPIRATORY FAILURE WITH HYPOXIA Status: Resolved (4) IJEOMA (acute kidney injury) Code(s): N17.9 - ACUTE KIDNEY FAILURE, UNSPECIFIED Status: Acute (5) CKD (chronic kidney disease) stage 4, GFR 15-29 ml/min Code(s): N18.4 - CHRONIC KIDNEY DISEASE, STAGE 4 (SEVERE) Status: Chronic (6) HTN (hypertension) Code(s): I10 - ESSENTIAL (PRIMARY) HYPERTENSION Status: Chronic Qualifiers: Hypertension type: essential hypertension Qualified Code(s): I10 - Essential (primary) hypertension (7) Sepsis Code(s): A41.9 - SEPSIS, UNSPECIFIED ORGANISM Status: Resolved Qualifiers: Sepsis acute organ dysfunction status: with acute organ dysfunction Severe sepsis acute organ dysfunction type: acute renal failure Severe sepsis shock status: without septic shock (8) DM type 2 (diabetes mellitus, type 2) Status: Chronic Qualifiers: Diabetes mellitus extermination supervisor insulin use: without extermination supervisor use Diabetes mellitus complication status: with kidney complications Diabetes mellitus complication detail: with chronic kidney disease Chronic kidney disease stage : stage 4 (severe) Qualified Code(s): E11.22 - Type 2 diabetes mellitus with diabetic chronic kidney disease; N18.4 - Chronic kidney disease, stage 4 (severe ) (9) Dyslipidemia Code(s): E78.5 - HYPERLIPIDEMIA, UNSPECIFIED Status: Chronic (10) Obesity (BMI 30.0-34.9) Code(s): E66.9 - OBESITY, UNSPECIFIED Status: Chronic - Plan is on room air and is saturating well. Is ambulating in room a bit no fever, renal function is getting better is oriented but hard of hearing finished 4 days of zithromax and full course of hydoxychloroquine, on steroid taper, cefepime, znso4 has responded well to steroids with resolution of fever and is off all forms of oxygen. encourage po intake code status was revisited specifically if he wants to go on ventilator if he gets worse, he and family have decided to be full code for now (09/30/2019). dm is a bit uncontrolled due to steroids, is on lantus 30u bid, glipizide.
[2019-10-04] MEDS: predniSONE 20 MG TAB PO SCH (20:45)
[2019-10-04] MEDS: Cefepime 1 GM in Sodium Chloride 0.9% 100 ML IVPB SCH (20:46)
[2019-10-04] MEDS: Zinc Sulfate 220 MG CAP PO SCH (20:46)
[2019-10-05] MEDS: Insulin Regular 300 UNITS/3 ML VIAL SC PRN (06:07)
[2019-10-05] MEDS: Aspirin 81 mg Enteric Coated Tablet PO SCH (07:51)
[2019-10-05] MEDS: predniSONE 20 MG TAB PO SCH (07:51)
[2019-10-05] MEDS: Insulin Glargine 30 UNITS in Pre-Filled Syringe 1 EACH SC SCH ×2 (07:51→11:50)
[2019-10-05] MEDS: Famotidine 20 MG TAB PO SCH (07:51)
[2019-10-05] MEDS: Heparin 5,000 UNITS/ML VIAL SC SCH (07:51)
--- NOTE | 2019-10-05 08:57 | PRG ---
DATE OF SERVICE: 10/05/2019 SUBJECTIVE: I saw him via the video monitor today. He is up walking around the room without much difficulty. OBJECTIVE: VITAL SIGNS: Temperature 97.9, pulse 85, respirations 18, O2 saturation 92% on room air, blood pressure 118/79. HEENT: Unremarkable. NECK: No JVD. CHEST: Clear. ASSESSMENT: COVID-19 pneumonia-resolving. PLAN: Because he is not needing oxygen, I think he is cleared to go home at this time. Again, I would taper steroids over about a week. He should remain in isolation at home for another 10-14 days. Job ID: [id number]
[2019-10-05 11:50] VITALS: BP 146/80; TEMP 98.6
--- NOTE | 2019-10-05 17:22 | DIS ---
DATE OF ADMISSION: 09/25/2019 DATE OF DISCHARGE: 10/05/2019 DISCHARGE DISPOSITION: To home. PRIMARY DISCHARGE DIAGNOSES: 1. Coronavirus disease-19 pneumonia. 2. Respiratory failure with hypoxia secondary to above. 3. Acute kidney injury with a history of chronic kidney disease stage 4 secondary to above. 4. Sepsis secondary to above. 5. Hypertension. 6. Diabetes mellitus, type 2. 7. Dyslipidemia. PROCEDURES DONE DURING HOSPITALIZATION: The patient has finished 4 days of Zithromax. This was held due to QT prolongation, and he has finished a full course of hydroxychloroquine and is currently on a steroid taper. Chest x-ray done on the day of admission showed right hemithorax airspace disease compatible with pneumonia. A repeat chest x-ray done on 09/29/2019 showed worsening multifocal pneumonia. Ultrasound of the kidneys done showed no hydronephrosis. Blood cultures x2, no growth. Urine culture, no growth. Discharge white count of 18, H and H 11 and 34, platelet count 592 with 88% neutrophils. Admitting white count was 7 with 87% neutrophils and 8% lymphocytes. Admitting platelet count was 288. PT/INR drawn on the 28 of September was 15.9 and 1.3. D-dimer was 4.85. A repeat D-dimer on the was 10.3. Ferritin on admission was 2386. Discharge ferritin is 1171. CRP on the day of discharge is 5.82, on admission was 29.7. Creatinine on the was 2.2. Admitting creatinine was 6.5, john paul up to 7.3 on the . BNP was 256 on the 9. AST was 69 on the 15. Admitting AST was 68, ALT was 71 on the day of discharge with admitting numbers of 41. Alkaline phosphatase was 84 on the day of admission with discharge numbers of 138. Albumin 2.9. COVID-19 PCR was detected. DISCHARGE MEDICATIONS: 1. Prednisone taper starting at 10 mg p.o. 3 times daily for 5 days, then twice daily for 5 days, then daily for 5 days, and to discontinue. 2. Zinc sulfate 220 mg p.o. daily. 3. Protonix 40 mg p.o. daily. 4. Albuterol nebulizer 3 times daily. 5. Glipizide extended release 10 mg p.o. daily. 6. Norvasc 5 mg p.o. daily. 7. Aspirin 81 mg p.o. daily. 8. Lantus 25 units subcu twice daily. 9. Multivitamin 1 tablet once daily. ALLERGIES: NO KNOWN DRUG ALLERGIES. INPATIENT CONSULTS: 1. Dr. Palacios for Infectious Disease. 2. Dr. Barraza for Pulmonology. 3. Dr. Phillips for Nephrology. DISCHARGE PLAN: The patient to follow up with Dr. Palacios in 1 week. He needs to follow up with Dr. Phillips in 1 week, Dr. Barraza in 2 to 3 weeks, and Dr. Corcoran, his primary care physician, in 1 week. BRIEF COURSE DURING HOSPITALIZATION: The patient initially got admitted on the 24 of September with complaints of fever and shortness of breath. He was also lethargic and had a temperature of 101. The patient had recently been to [place]. COVID- 19 PCR was obtained on arrival. He had been to [facility] in [place] a week back prior to arrival here. He was initially suspected to have COVID-19 pneumonia and was initially placed on antibiotics until PCR results came on. Once PCR results came, he was placed on Zithromax and hydroxychloroquine. The patient had acute kidney injury on arrival and was gently hydrated given his COVID-19 being positive. His inflammatory markers were slowly increasing. Zithromax had to be discontinued after 4 days due to QT prolongation. He continued and finished his full course of hydroxychloroquine for 7 days. The patient continued to have temperature after full course of hydroxychloroquine and was placed on steroids. He responded very well for the steroids with complete resolution of fever, and his inflammatory markers are trending down. The patient's renal function is almost at his baseline, CKD stage 4 levels. He lives with his who is also positive for COVID-19 and was diagnosed just 3 days back. The patient is wanting to go home and will be in complete quarantine with his . In view of this, he is being discharged home. He was counseled to be in complete quarantine after discharge. I have given complete updates to the patient's , Ms. Lilian Baugh. She is also aware of all the followups that are needed. If he were to develop shortness of breath or any worsening from his current physical condition, he needs to call EMS and arrive in the ER. Mr. Baugh was very close to getting intubated, but he was managed on high-flow oxygen and is completely off oxygen at the time of discharge. He is saturating around 93% on room air. He is ambulating minimally in the room. Please note, I have seen and examined the patient on the day of discharge. He has been cleared for discharge by Dr. Barraza. Job ID: [id number] MTDD
--- NOTE | 2019-10-06 08:36 | PQF ---
DEEP LOCKHART VINAYA KUMAR MD [id number] [facility]232 [id number] CLINICAL DOCUMENTATION CLARIFICATION FORM: POST DISCHARGE Addendum to original discharge summary date: ____ Late entry note date: __ DATE:10/06/2019 ATTN: Marla Olson Please exercise your independent, professional judgment in responding to the clarification form. Clinical indicators are provided on the bottom of this form for your review Diagnosis: Sepsis Present on Admission (POA): [ x ] Yes [ ] No [ ] Unable to determine due to covid 19 pneumonia Coding guidelines require hospitals to identify whether a diagnosis was present on admission (POA) or not. To accurately assign the appropriate POA indicator, this information must be clearly documented within the medical record. CLINICAL INDICATORS - SIGNS / SYMPTOMS / LABS Laboratory 09/24 WBC 7.1, Plate count 288, Neutrophils 77, Lactic Acid 1.1 CoVid test positive Vital signs 09/24 BP 144/74, Pulse 81, Resp 22, Temp 101.1 Ed notes p1 SIRS scoring pt met criteria ED notes p9 SIRS considerer, no evidence of overt Sepsis at this time H&P p1 09/24 Dr Ram Pt presented with Fever, lookds somnolent and lethargic H&P p1 09/24 Dr Ram Suspected Covid 2019 infection H&P p1 09/24 Dr Ram IJEOMA H&P p1 09/24 Dr Ram patient is somnolent and lethargic Hospitalist PN p3 09/28 Dr Barbosa Sepsis due to Pneumonia Discharge summary p1 Acute respiratory Failure Discharge summary p1 blood culture x2 no growth RISK FACTORS: H&P p1 4/ 74 year-old Male H&P p1 4/ DM type 2 H&P p1 09/24 HTN H&P p1 09/24 HLD Hospitalist PN p3 09/28 - Obesity Hospitalist PN p3 09/28 Pneumonia DS p1 10/04 Covid 19 infection TREATMENT: Septic Protocol 09/24 Covid Test 09/24 Isolation Chest x-ray 09/24Aug 22 IVF Ns 1L AUG 22 IV Cefriatxone 1gm AUG 22 Plaquenil 400mg oral Aug 22 IV Vancomycin 2 gm AUG 22 Solumedrol 20mg IV H&P p1 09/24 Oxygen via NC DS p1 10/04 Blood culture DS p1 10/04 ID consult DS p1 10/04 Pulmonology Consult (This form is maintained as a part of the permanent medical record) 2014 [employer]. All Rights Reserved [email or web address]
== END 2019-10-05 14:15 | disposition home or self-care (01) | DRG 871 ==
LOC: ERS 18:35 → 2SW 21:32 → OBSVTOIN 21:32 → 2SW 10-01 08:53
PROVIDERS: ADMIT Internal Medicine; ATTEND Internal Medicine
PROC: 8E0ZXY6 Isolation (ICD-10-PCS; principal; 2019-09-25)
DX: A41.89 Other specified sepsis (principal); U07.1 COVID-19; J12.89 Other viral pneumonia; J96.01 Acute respiratory failure with hypoxia; N17.9 Acute kidney failure, unspecified; N18.5 Chronic kidney disease, stage 5; I12.0 Hypertensive chronic kidney disease with stage 5 chronic kidney disease or end stage renal disease; E78.5 Hyperlipidemia, unspecified; E11.22 Type 2 diabetes mellitus with diabetic chronic kidney disease; E66.9 Obesity, unspecified; D63.1 Anemia in chronic kidney disease; I45.81 Long QT syndrome; R31.29 Other microscopic hematuria; E83.42 Hypomagnesemia; E87.6 Hypokalemia; E11.65 Type 2 diabetes mellitus with hyperglycemia; T38.0X5A Adverse effect of glucocorticoids and synthetic analogues, initial encounter; Z79.899 Other long term (current) drug therapy; Z79.84 Long term (current) use of oral hypoglycemic drugs; Z79.82 Long term (current) use of aspirin; Z68.32 Body mass index [BMI] 32.0-32.9, adult
CPT/HCPCS: 36415; 36416; 71045; 76770; 80053; 80202; 81001; 82570; 82728; 83605; 83735; 83880; 83970; 84156; 85007; 85025; 85027; 85379; 85610; 85730; 86140; 87040; 87086; 87635; 93005; 94760; 96361; 96365; 96375; J0456; J0692; J0696; J1644; J1650; J1815; J1940; J2920; J3370; J3475; J3480; J3490; J7030; J7050; J7512; U0002

== ENCOUNTER 2019-10-14 10:19 | Inpatient (IN) | payer MEDICARE, OTHER ==
--- NOTE | 2019-10-14 11:08 | CT ---
CT Brain WO Con: 10/14/2019 10:56 AM CLINICAL HISTORY: Level 2 stroke alert for left-sided weakness that is improving. IMAGING TECHNIQUE: Multiple CT images were obtained of the brain without IV contrast. COMPARISON: CT the brain without contrast from [facility] dated August FINDINGS: Brain: Generalized cerebral and cerebellar atrophy is stable appearing. Mild chronic small vessel wh ite matter ischemic changes stable. No acute infarct, hemorrhage or hydrocephalus is present Ventricles: Normal. No hydrocephalus. Skull: Intact. Visualized Paranasal sinuses: There is mild mucosal thickening within the ethmoid air cells Mastoid air cells:Clear. Extracranial soft tissues:Normal. IMPRESSION: 1. No acute intracranial abnormality. Findings called to Dr. Freedman at 11:04 AM on October 14, 2019. 2. Stable generalized cerebral and cerebellar atrophy and mild chronic small vessel white matter sign al change. 3. Mild paranasal sinus disease.
[2019-10-14 11:25] LABS: ALT (SGPT) 35 U/L (8-55); AST (SGOT) 26 U/L (5-34); Alkaline Phosphatase 84 U/L (40-110); Anion Gap 16 mmol/L (10-20); BUN (Urea Nitrogen) 24 mg/dL (8.4-25.7); Bilirubin, Total 0.6 mg/dL (0.2-1.2); Calc. Creatinine Clearance 0 mL/min (70-130); Calcium 8.4 mg/dL (7.8-10.44); Carbon Dioxide 24 mmol/L (23-31); Chloride 103 mmol/L (98-107); Estimated GFR-MDRD 57; Globulin 3.1 g/dL (2.4-3.5); Glucose 86 mg/dL (83-110); Potassium 3.5 mmol/L (3.5-5.1); Protein, Total 6.1 g/dL (5.8-8.1); Sodium 139 mmol/L (136-145)
[2019-10-14 11:31] LABS: Band 10 % (5-11); Eosinophils 1 % (0-10); Hemoglobin 11.6 g/dL (14.0-18.0); Lymphocytes 10 % (21-51); MDiff Complete? YES; Mean Corpuscular HGB CONC 33.5 g/dL (32.0-36.0); Mean Corpuscular Hemoglobin 30.7 pg (27.0-31.0); Mean Corpuscular Volume 91.6 fL (78.0-98.0); Mean Platelet Volume 8.8 fL (7.4-10.4); Monocytes 3 % (0-10); Neutrophil 75 % (42-75); Platelet Count 336 thou/uL (130-400); RBC Distribution Width 12.4 % (11.5-14.5); White Blood Cell (WBC) Count 16.3 thou/uL (4.8-10.8)
--- NOTE | 2019-10-14 11:37 | RAD ---
PORTABLE CHEST: History: Dyspnea. Right sided weakness. Comparison: 09-29-2019 FINDINGS: Heart size is within normal limits. There is still extensive parenchymal lung changes seen. They are slightly improved as compared to the prior examination. The left midlung field changes shows some sli ght improvement and the right basilar lung changes and right upper lobe changes also slightly improve d, although still fairly extensive. IMPRESSION: Mild improvement to the bilateral infiltrative lung changes. POS: KATHIE
[2019-10-14] MEDS ORDERED: Enoxaparin Sodium 60 MG/0.6 ML SYRINGE ONE (12:04)
[2019-10-14] MEDS ORDERED: Aspirin Chewable 81 MG TAB ONE (12:04)
[2019-10-14] MEDS ORDERED: Enoxaparin Sodium 100 MG/ML SYRINGE ONE (12:44)
[2019-10-14 13:02] LABS: Bacteria/HPF None Seen HPF (None Seen); Bilirubin Negative (Negative); Blood, Urine 1+ (Negative); Clarity Clear (Clear); Glucose, Urine (Dipstick) Normal (Negative); Leukocyte Negative Leu/uL (Negative); Nitrite Negative (Negative); Protein, Urine (Dipstick) 50 mg/dL (Neg-Trace); Squamous Epithelial None Seen HPF (0-3); Urobilinogen Normal mg/dL (Less than 2)
[2019-10-14 13:22] LABS: Prothrombin Time 13.3 SEC (12.0-14.7)
[2019-10-14 13:27] LABS: PTT 24.2 SEC (22.9-36.1)
[2019-10-14] MEDS ORDERED: Ondansetron PF 4 MG/2 ML Vial IVP PRN (14:52)
[2019-10-14 14:57] LABS: Critical Call Chem Troponin I RESULT DECREASING
[2019-10-14 17:17] LABS: Critical Call Chem Troponin I RESULT DECREASING; Troponin I 1.337 ng/mL (< 0.028)
--- NOTE | 2019-10-14 18:31 | PDOC.HHP ---
Hospitalist HPI - History of Present Illness s/p fall History of Present Illness: This is 74 year old male patient with hypertension, diabetes, hyperlipidemia, recent COVID + who presented to the ER after a fall. The patient states he was standing up and lost his balance and then fell on his back. He did not feel numb or weak in his legs or arms. He was able to get up but came to ER for further evaluation. Overall he is a poor historian. He denied chest pain, palpitations, dizziness, lightheadedness prior to the fall. He states he did not pass out or hit his head. He had COVID + pneumonia on 09/24. He is not taking any antibiotics currently. Currently he says he is doing better from that standpoint and only has trouble taking in a deep breath. He denies runny nose, fevers, chills, sore throat or muscle aches. Per ER attending, the patient had some right sided weakness which had resolved by the time the patient had gotten to the ER. He denied dysphagia or dysarthria. ED Course: Vitals were essentially normal on presentation. The patient had an EKG which showed normal sinus rhythm. Troponin was > 1. Per ER attending, she gave aspirin 324 mg and therapeutic lovenox. Hospitalist ROS - Review of Systems Constitutional: denies: fever, chills ENT: denies: ear pain, ear discharge Respiratory: reports: shortness of breath. denies: cough, dry Cardiovascular: denies: chest pain, palpitations, orthopnea, light headedness Gastrointestinal: denies: nausea, vomiting, diarrhea Genitourinary: denies: dysuria, frequency Musculoskeletal: denies: neck pain, shoulder pain Skin: denies: rash, lesions Neurological: denies: weakness, numbness Hospitalist History - Past Medical History Cardiac: reports: HTN, Hyperlipidemia Pulmonary: reports: Other (COVID +) - Past Surgical History Past Surgical History: reports: Tonsillectomy - Family History Other Family History: Patient reports no family hitsory - Social History Smoking Status: Never smoker Alcohol: reports: Occassional Drugs: reports: none - Exam General Appearance: NAD, awake alert Eye: PERRL, anicteric sclera Eye - other findings: difficulty following commands with EOMI, but can move his eyes ENT: normocephalic atraumatic, no oropharyngeal lesions Neck: supple, symmetric, no JVD, no thyromegaly Heart: RRR, no murmur, no gallops, no rubs Respiratory: CTAB, no wheezes, no rales, no ronchi Gastrointestinal: soft, non-tender, non-distended, normal bowel sounds Extremities: no cyanosis, no clubbing, no edema Skin: normal turgor, no lesions, no rashes Neurological: cranial nerve grossly intact, normal sensation to touch, no focal deficits, no new deficit Musculoskeletal: normal tone, normal strength, no muscle wasting Musculoskeletal - other findings: 5/5 strength upper and lower extremities Psychiatric: normal affect, normal behavior, A&O x 3, oriented to person Hospitalist Results - Labs Result Diagrams: 10/14/19 10:41 10/14/19 10:41 Lab results: WBC 16.3 thou/uL (4.8-10.8) H 10/14/19 10:41 Hgb 11.6 g/dL (14.0-18.0) L 10/14/19 10:41 Hct 34.8 % (42.0-52.0) L 10/14/19 10:41 MCV 91.6 fL (78.0-98.0) 10/14/19 10:41 Plt Count 336 thou/uL (130-400) 10/14/19 10:41 Band Neuts % (Manual) 10 % (5-11) 10/14/19 10:41 Sodium 139 mmol/L (136-145) 10/14/19 10:41 Potassium 3.5 mmol/L (3.5-5.1) 10/14/19 10:41 Chloride 103 mmol/L (98-107) 10/14/19 10:41 Carbon Dioxide 24 mmol/L (23-31) 10/14/19 10:41 BUN 24 mg/dL (8.4-25.7) 10/14/19 10:41 Creatinine 1.25 mg/dL (0.7-1.3) 10/14/19 10:41 Glucose 86 mg/dL (83-110) 10/14/19 10:41 Lactic Acid 1.6 mmol/L (0.5-2.2) 10/14/19 11:51 Calcium 8.4 mg/dL (7.8-10.44) 10/14/19 10:41 Total Bilirubin 0.6 mg/dL (0.2-1.2) 10/14/19 10:41 AST 26 U/L (5-34) 10/14/19 10:41 ALT 35 U/L (8-55) 10/14/19 10:41 Alkaline Phosphatase 84 U/L (40-110) 10/14/19 10:41 CK-MB (CK-2) 1.0 ng/mL (0-6.6) 10/14/19 10:41 Troponin I 1.337 ng/mL (< 0.028) H* 10/14/19 16:42 B-Natriuretic Peptide 432.8 pg/mL (0-100) H 10/14/19 Unknown Serum Total Protein 6.1 g/dL (5.8-8.1) 10/14/19 10:41 Albumin 3.0 g/dL (3.4-4.8) L 10/14/19 10:41 Urine Ketones Negative mg/dL (Negative) 10/14/19 12:42 Urine Blood 1+ (Negative) A 10/14/19 12:42 Urine Nitrite Negative (Negative) 10/14/19 12:42 Ur Leukocyte Esterase Negative Johnathan/uL (Negative) 10/14/19 12:42 Urine RBC 7-10 HPF (0-3) A 10/14/19 12:42 Urine WBC 4-6 HPF (0-3) A 10/14/19 12:42 Ur Squamous Epith Cells None Seen HPF (0-3) 10/14/19 12:42 Urine Bacteria None Seen HPF (None Seen) 10/14/19 12:42 Hospitalist H&P A/P - Plan Plan: CT head: cerebral and cerebellar atrophy Chest Xray: mild improvement in bilateral infiltrates This is 74 year old male who presented after a fall, had some transient right sided weakness per ER provider S/p fall, questionable TIA vs presyncope - continue aspirin, statin - CT head showed no acute disease. Unable to do MRI brain for now. Will place neuro consult - check orthostatics - troponin positive, continue to trend - PT/OT COVID + Leukocytosis - WBC of 16, improved from 10/03 - will continue prednisone taper with 10 mg bid today. Chest X ray today shows bilateral infiltrates improved from last admission - breathing treatments prn - per ID, will check two consecutive COVID serology and if negative 24 hours apart can d/c isolation Possible NSTEMI - troponin peaked at 1.370 - will check ECHO, consult cardiology. No chest pain currently - s/p aspirin and therapeutic lovenox in the ER. Will continue for now. Add statin 80 mg, metoprolol 12.5 mg, lisinopril in the am Type II diabetes -fingersticks achs - insulin sliding scale Anemia - hemoglobin of 11, stable DVT prophylaxis: therapeutic lovenox Code status: full code
[2019-10-14] MEDS ORDERED: Non-Formulary Item 1 EACH (Albuterol Sulfate Hfa (Or) 1 PUFF) INH PRN (19:42)
[2019-10-14] MEDS ORDERED: Dextrose 5% in Water 1,000 ML IV PRN (19:44)
[2019-10-14] MEDS ORDERED: Dextrose 50% Abboject 50 ML SYRINGE SLOW IVP PRN (19:44)
[2019-10-14] MEDS: Zinc Sulfate 220 MG CAP PO SCH (19:58)
[2019-10-14] MEDS ORDERED: Nitroglycerin 0.4 MG TAB (25 Tab Bottle) SL PRN (22:04)
[2019-10-14] MEDS ORDERED: Metoprolol Tartrate 25 MG TAB PO SCH (22:30)
[2019-10-14] MEDS ORDERED: Enoxaparin Sodium 100 MG/ML SYRINGE SC SCH (22:30)
--- NOTE | 2019-10-15 00:08 | ULT ---
Exam: Right lower extremity venous ultrasound with Doppler HISTORY: Right lower extremity swelling COMPARISON: None TECHNIQUE: Grayscale, color flow, Doppler imaging and spectral wave muscle from the right lower extre mity venous system FINDINGS: Compressibility, presence of flow and augmentation in the common femoral vein, femoral vein and popliteal vein. Flow in the posterior tibial vein. Flow the greater saphenous vein and profunda femoral vein IMPRESSION: No evidence of thrombus in the right lower extremity deep venous system
[2019-10-15] MEDS ORDERED: Enoxaparin Sodium 100 MG/ML SYRINGE SC SCH (01:00)
[2019-10-15 04:56] LABS: #Eosinphils 0.2 thou/uL (0.0-0.7); #Monocytes 0.5 thou/uL (0.11-0.59); #Neutrophils 11.3 thou/uL (1.40-6.50); %Basophils 0.2 % (0.0-1.0); %Eosinophils 1.7 % (0.0-10.0); %Lymphocytes 7.3 % (21.0-51.0); %Monocytes 3.7 % (0.0-10.0); %Neutrophils 87.1 % (42.0-75.0); Hemoglobin 11.3 g/dL (14.0-18.0); Mean Corpuscular HGB CONC 31.8 g/dL (32.0-36.0); Mean Corpuscular Volume 91.4 fL (78.0-98.0); Mean Platelet Volume 8.4 fL (7.4-10.4); Platelet Count 333 thou/uL (130-400); RBC Distribution Width 12.6 % (11.5-14.5); Red Blood Cell (RBC) Count 3.88 mill/uL (4.70-6.10)
[2019-10-15 05:20] LABS: Anion Gap 14 mmol/L (10-20); BUN (Urea Nitrogen) 21 mg/dL (8.4-25.7); Calc. Creatinine Clearance 77 mL/min (70-130); Calcium 8.3 mg/dL (7.8-10.44); Carbon Dioxide 25 mmol/L (23-31); Chloride 103 mmol/L (98-107); Estimated GFR-MDRD 60; Glucose 100 mg/dL (83-110); Sodium 138 mmol/L (136-145)
[2019-10-15] MEDS ORDERED: predniSONE 5 MG TAB PO SCH (08:00)
[2019-10-15] MEDS ORDERED: Lisinopril 2.5 MG TAB PO SCH (09:00)
[2019-10-15] MEDS ORDERED: Metoprolol Tartrate 25 MG TAB PO SCH (09:00)
[2019-10-15] MEDS ORDERED: Aspirin 81 mg Enteric Coated Tablet PO SCH (09:00)
[2019-10-15] MEDS: Enoxaparin Sodium 100 MG/ML SYRINGE SC SCH ×2 (09:47→19:59)
[2019-10-15] MEDS: Multivitamin W/ Minerals 1 TAB PO SCH (09:48)
--- NOTE | 2019-10-15 11:25 | CON ---
DATE OF CONSULTATION: 10/15/2019 CONSULTING PHYSICIAN: Hospitalist Service. IMPRESSION: 1. 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 2. History of hyperlipidemia. 3. Recent coronavirus disease infection. 4. Hypertension. 5. Orthostatic hypotension. PLAN: 1. Aspirin 325 mg per day. 2. Restart a statin. 3. Carotid ultrasound and echocardiogram. 4. MRI of the brain. 5. PT and OT assessments. 6. Hold antihypertensives. HISTORY OF PRESENT ILLNESS: Mr. Baugh is a 74-year-old man, who was recently admitted with positive COVID antibody swab test on the 6th of this month. He was discharged home reportedly in stable condition. He was taken off his statin for some reason at that point. He presented after having a fall. He is somewhat of a poor historian. He reports that he did lose consciousness. Orthostatic blood pressure measurements have been attempted, and he was noted to go from 125 systolic while lying down to 100 systolic while sitting. He had became very dizzy when he was attempted to stand. They could not get a definitive blood pressure. He had a CT on admission, which was unremarkable. He had a venous ultrasound of his leg, which was also negative. EKG showed a sinus rhythm. He does not report any lateralized weakness or numbness. He denies a history of prior stroke. PAST MEDICAL HISTORY: As listed above. ALLERGIES: NONE REPORTED. SOCIAL HISTORY: No tobacco use. FAMILY HISTORY: Noncontributory. MEDICATIONS: Reviewed and include both Coreg and lisinopril. REVIEW OF SYSTEMS: Ten-system review of systems is otherwise negative. PHYSICAL EXAMINATION: GENERAL: He is a well-nourished elderly gentleman, no acute distress. VITAL SIGNS: Reviewed. HEENT: Pupils equal and reactive. Conjunctivae are clear. Oropharynx clear. NECK: Supple. EXTREMITIES: There is some slight swelling on the right leg. No cyanosis is present. NEUROLOGIC: He is alert and cooperative. His speech is fluent and clear. There is some subtle left facial flattening. Motor exam showed diminished strength in the left arm and more so than in the leg. Simultaneous stimulation showed neglect on the left side. Plantar response was upgoing on the left and downgoing on the right. Gait was not tested. No abnormal movements were seen. SUMMARY: This is an elderly gentleman with sensory neglect on the left side as well as some weakness suggestive of a right MCA stroke. We need to complete his workup and restart aspirin and a statin. Job ID: [id number]
[2019-10-15] MEDS ORDERED: Sodium Chloride 0.9% 1,000 ML IV SCH (12:30)
--- NOTE | 2019-10-15 12:30 | PDOC.HOSPP ---
- Subjective Encounter Date: 10/15/19 Encounter Time: 12:29 Subjective: The patient has no complaints. No significant shortness of breath, no cough .Per nursing staff his orthostatic was 120 laying to 100 sitting and unable to get standing due to severe dizziness. He did get metoprolol and lisinopril this am. Repeat orthostatics this morning show BP of 66 while standing. - Objective Vital Signs & Weight: Vital Signs (12 hours) Temp Pulse Resp BP BP BP BP 10/15/19 12:00 96.0 F L 71 18 102/62 66/48 L 130/81 10/15/19 07:42 97 100/66 10/15/19 07:40 98.9 F 92 18 125/75 10/15/19 04:00 97.6 F 97 20 117/74 Pulse Ox 10/15/19 12:00 91 L 10/15/19 07:42 10/15/19 07:40 92 L 10/15/19 04:00 95 Weight Weight 206 lb 12.8 oz I&O: 10/14/19 10/15/19 10/16/19 06:59 06:59 06:59 Intake Total 440 Output Total 550 Balance -110 Result Diagrams: 10/15/19 04:25 10/15/19 04:25 Additional Labs: Accuchecks 10/15/19 10/15/19 10/14/19 10:35 05:36 20:12 POC Glucose 125 H 110 72 10/14/19 10:48 POC Glucose 103 Hospitalist ROS - Review of Systems Constitutional: denies: fever, chills - Medication Medications: Active Medications Generic Name Dose Route Start Last Admin Trade Name Romina PRN Reason Stop Dose Admin Aspirin 81 mg 10/15/19 09:00 10/15/19 09:47 Ecotrin PO 81 mg DAILY ROSALVA Administration Enoxaparin Sodium 100 mg 10/15/19 09:00 10/15/19 09:47 Lovenox SC 100 mg BID ROSALVA Administration Iron/Minerals/Multivitamins 1 tab 10/15/19 09:00 10/15/19 09:48 Theragran M PO 1 tab DAILY ROSALVA Administration Pantoprazole Sodium 40 mg 10/15/19 09:00 10/15/19 09:48 Protonix PO 40 mg DAILY ROSALVA Administration Prednisone 10 mg 10/15/19 08:00 10/15/19 09:47 Prednisone PO 10 mg BID-WM ROSALVA Administration Zinc Sulfate 220 mg 10/14/19 21:00 10/14/19 19:58 Zinc Sulfate PO 220 mg 2100 ROSALVA Administration - Exam General Appearance: NAD, awake alert Eye: PERRL, anicteric sclera Eye - other findings: difficulty following command with extra ocular muscle testing ENT: normocephalic atraumatic, no oropharyngeal lesions Neck: supple, no JVD Heart: RRR, no murmur, no gallops, no rubs Respiratory: CTAB, no wheezes Respiratory - other findings: slightly diminished at the base Gastrointestinal: soft, non-tender, non-distended, normal bowel sounds Extremities: no cyanosis, no clubbing, no edema Skin: normal turgor, no lesions, no rashes Neurological - other findings: left upper arm 4/5 strength Musculoskeletal: normal tone, normal strength, no muscle wasting Psychiatric: A&O x 3, flat affect Hosp A/P - Plan CT head: cerebral and cerebellar atrophy Chest Xray: mild improvement in bilateral infiltrates This is 74 year old male who presented after a fall, had some transient right sided weakness per ER provider #Orthostatic hypotension #S/p fall - possibly secondary to above #Possible stroke - continue aspirin, statin. Pt with some Left upper extremity weakness - CT head showed no acute disease. Unable to do MRI brain for now. Neuro consulted and thinks could be MCA stroke - will hydrate with IV fluids for orthostatic hypotension - check ECHO #Possible NSTEMI - troponin peaked at 1.370. Will repeat troponin today. Patient denies chest pain - cardiology will not evaluate unless enzymes trending up or ECHO Grossly abnormal or ches tpain - continue aspirin. Continue therapeutic lovenox for now - continue statin. - d/c metoprolol and lisinopril due to orthostatic hypotension #COVID + #Leukocytosis - WBC down to 13. Decrease prednisone dose to 10 mg daily. Chest X ray 10/14 shows improved bilateral infiltrates - prn breathing treatments - repeat COVID test pending. If negative will do one more and then d/c isolation #Type II diabetes -fingersticks achs - insulin sliding scale #Anemia - hemoglobin of 11, stable
[2019-10-15 13:31] LABS: Critical Call Chem Troponin I RESULT DECREASING
[2019-10-15 13:49] LABS: CKMB 0.7 ng/mL (0-6.6)
--- NOTE | 2019-10-15 19:37 | CT ---
Exam: Head CT without contrast HISTORY: Left arm weakness. Evaluate for stroke. Reevaluation. COMPARISON: 10/14/2019 FINDINGS: Hemorrhage: No intraparenchymal hemorrhage or extra-axial hematoma. Brain parenchyma: Loss of caro-white matter differentiation involving the right frontal and parietal lobe suggesting a subacute right MCA distribution infarct. Ventricular system: Ventricles and sulci are patent and symmetric. Calvarium: Intact. Sinuses and mastoid air cells: Minimal mucosal disease of the visualized paranasal sinuses IMPRESSION: 1. Subacute right MCA distribution infarct. 2. Further evaluation with brain MRI may be beneficial.
[2019-10-15] MEDS: Zinc Sulfate 220 MG CAP PO SCH (20:00)
[2019-10-15] MEDS: Atorvastatin Calcium 40 MG TAB PO SCH (20:00)
[2019-10-15] MEDS ORDERED: Atorvastatin Calcium 40 MG TAB PO SCH (21:00)
[2019-10-15] MEDS: Acetaminophen 325 MG TAB PO PRN (23:18)
[2019-10-16 05:14] LABS: Hemoglobin 8.7 g/dL (14.0-18.0); Mean Corpuscular HGB CONC 32.5 g/dL (32.0-36.0); Mean Corpuscular Hemoglobin 29.9 pg (27.0-31.0); Mean Corpuscular Volume 91.9 fL (78.0-98.0); Mean Platelet Volume 8.8 fL (7.4-10.4); Platelet Count 275 thou/uL (130-400); RBC Distribution Width 12.5 % (11.5-14.5); Red Blood Cell (RBC) Count 2.91 mill/uL (4.70-6.10); White Blood Cell (WBC) Count 12.8 thou/uL (4.8-10.8)
[2019-10-16 05:20] LABS: Anion Gap 17 mmol/L (10-20); BUN (Urea Nitrogen) 29 mg/dL (8.4-25.7); Calc. Creatinine Clearance 65 mL/min (70-130); Calcium 7.8 mg/dL (7.8-10.44); Carbon Dioxide 19 mmol/L (23-31); Chloride 103 mmol/L (98-107); Estimated GFR-MDRD 52; Glucose 186 mg/dL (83-110); Potassium 3.9 mmol/L (3.5-5.1); Sodium 135 mmol/L (136-145)
[2019-10-16] MEDS ORDERED: Fludrocortisone Acetate 0.1 MG TAB PO SCH ×2 (09:00→18:15)
[2019-10-16] MEDS ORDERED: Aspirin 325 MG TAB PO SCH (09:00)
[2019-10-16] MEDS: Enoxaparin Sodium 100 MG/ML SYRINGE SC SCH (10:01)
[2019-10-16] MEDS: Folic Acid 1 MG TAB PO SCH (10:02)
[2019-10-16] MEDS: Multivitamin W/ Minerals 1 TAB PO SCH (10:02)
[2019-10-16] MEDS: predniSONE 5 MG TAB PO SCH (10:02)
[2019-10-16] MEDS ORDERED: Sodium Chloride 0.9% 1,000 ML IV SCH (11:15)
[2019-10-16 14:25] VITALS: BMI 28.8
[2019-10-16] MEDS: HumaLOG 300 UNITS/3 ML VIAL SC PRN ×2 (14:49→18:20)
--- NOTE | 2019-10-16 18:00 | PDOC.HOSPP ---
- Subjective Encounter Date: 10/16/19 Encounter Time: 17:00 Subjective: The patient states he feels fine. No numbness or weakness. Spoke to daughter today, patient fell at home and had left sided weakness. She states they took care of him at home the past few weeks and they do not think he was taking his aspirin but aren't sure. Patient denies cough or shortness of breath Orthostatic positive this am, repeat orthostatics still positive but better with standing BP in the 90's. Patient reports mild dizziness while standing - Objective Vital Signs & Weight: Vital Signs (12 hours) Temp Pulse Pulse Pulse Pulse Resp BP 10/16/19 16:59 97.5 F L 95 15 10/16/19 13:35 99.1 F 80 22 H 10/16/19 12:13 96 117 H 93 112/67 10/16/19 10:35 10/16/19 10:09 97 F L 96 20 BP BP BP BP BP Pulse Ox 10/16/19 16:59 118/69 91/54 L 123/67 92 L 10/16/19 13:35 98/57 L 92 L 10/16/19 12:13 92/59 L 95/52 L 10/16/19 10:35 87/56 L 77/55 L 128/71 10/16/19 10:09 115/66 92 L Weight Admit Weight 217 lb 3.2 oz Weight 206 lb 12.8 oz I&O: 10/15/19 10/16/19 10/17/19 06:59 06:59 06:59 Intake Total 440 1130 40 Output Total 550 1050 Balance -110 80 40 Result Diagrams: 10/16/19 04:51 10/16/19 04:51 Additional Labs: Accuchecks 10/16/19 10/15/19 16:55 20:10 POC Glucose 210 H 197 H Hospitalist ROS - Review of Systems Constitutional: denies: fever, chills - Medication Medications: Active Medications Generic Name Dose Route Start Last Admin Trade Name Freq PRN Reason Stop Dose Admin Acetaminophen 650 mg 10/14/19 14:52 10/15/19 23:18 Tylenol PO 650 mg Q4H PRN Administration Headache/Fever/Mild Pain (1-3) Aspirin 325 mg 10/16/19 09:00 10/16/19 10:02 Aspirin PO 325 mg DAILY ROSALVA Administration Atorvastatin Calcium 40 mg 10/15/19 21:00 10/15/19 20:00 Lipitor PO 40 mg HS ORSALVA Administration Enoxaparin Sodium 100 mg 10/15/19 09:00 10/16/19 10:01 Lovenox SC 100 mg BID ROSALVA Administration Fludrocortisone Acetate 0.1 mg 10/16/19 09:00 10/16/19 13:03 Florinef PO 0.1 mg DAILY ROSALVA Administration Folic Acid 1 mg 10/16/19 09:00 10/16/19 10:02 Folvite PO 1 mg DAILY ROSALVA Administration Insulin Human Lispro 0 units 10/14/19 19:44 10/16/19 14:49 Humalog SC 4 unit .MILD SLIDING SCALE PRN Administration Mild Correctional Scale Iron/Minerals/Multivitamins 1 tab 10/15/19 09:00 10/16/19 10:02 Theragran M PO 1 tab DAILY ROSALVA Administration Pantoprazole Sodium 40 mg 10/15/19 09:00 10/16/19 10:02 Protonix PO 40 mg DAILY ROSALVA Administration Prednisone 10 mg 10/16/19 08:00 10/16/19 10:02 Prednisone PO 10 mg QAM-WM ROSALVA Administration Zinc Sulfate 220 mg 10/14/19 21:00 10/15/19 20:00 Zinc Sulfate PO 220 mg 2100 ROSALVA Administration - Exam General Appearance: NAD, awake alert Eye: PERRL, anicteric sclera ENT: normocephalic atraumatic, no oropharyngeal lesions Neck: supple, no JVD Heart: RRR, no murmur, no gallops, no rubs Respiratory: CTAB, no wheezes, no rales, no ronchi Gastrointestinal: soft, non-tender, non-distended, normal bowel sounds Extremities: no cyanosis, no clubbing, no edema Skin: normal turgor, no lesions, no rashes Neurological: cranial nerve grossly intact, no focal deficits Neurological - other findings: left arm pronator drift. He has left sided neglect. Intact visual acuity Musculoskeletal - other findings: 5/5 strength in all four extremities Psychiatric: normal behavior, A&O x 3, flat affect Hosp A/P - Plan CT head: cerebral and cerebellar atrophy Chest Xray: mild improvement in bilateral infiltrates CT head: subacute right MCA infarct. This is 74 year old male who presented after a fall, had some transient right sided weakness per ER provider #S/p fall - possibly secondary to stroke and orthostatic hypotension #Right MCA stroke - continue aspirin, statin. Pt with some Left side pronator drift . CT head repeated shows subacute right MCA infarct - ECHO unable to be done due to + COVID status - per neurology switch to aggrenox - PT and OT evaluation Orthostatic hypotension - s/p 1L fluid, and fludrocortisone - will increase fludrocortisone to 0.2 mg daily. Recheck orthostatics am - midodrine prn - compression stockings #Possible NSTEMI - troponin peaked at 1.370. Repeat troponin improved to 0.7. He is s/p therapeutic lovenox for 48 hours - ECHO not able to be done, cardiology cannot evaluate due to + COVID status. Patient denies chest pain - continue aggrenox, atorvastatin 40 mg #COVID + #Leukocytosis - WBC improving. Prednisone 10 mg daily x 4 more days to continue COVID taper. Chest X ray 10/14 shows improved bilateral infiltrates - prn breathing treatments #Type II diabetes -fingersticks achs - insulin sliding scale #Anemia - hemoglobin of 11, stable
[2019-10-16] MEDS ORDERED: Midodrine HCl 5 MG TAB PO PRN (18:04)
[2019-10-16] MEDS: Zinc Sulfate 220 MG CAP PO SCH (20:17)
[2019-10-16] MEDS: Aggrenox 200-25mg CAP PO SCH (20:17)
[2019-10-16] MEDS: Atorvastatin Calcium 40 MG TAB PO SCH (20:18)
[2019-10-17] MEDS: Albuterol 200 PUFF (6.7GM INHALER) INH PRN ×2 (00:11→06:27)
[2019-10-17] MEDS ORDERED: Melatonin 3 MG TAB PO SCH (02:45)
[2019-10-17 04:49] LABS: Hemoglobin 7.2 g/dL (14.0-18.0); Mean Corpuscular HGB CONC 34.4 g/dL (32.0-36.0); Mean Corpuscular Hemoglobin 30.5 pg (27.0-31.0); Mean Corpuscular Volume 88.7 fL (78.0-98.0); Mean Platelet Volume 8.4 fL (7.4-10.4); Platelet Count 256 thou/uL (130-400); RBC Distribution Width 12.4 % (11.5-14.5); Red Blood Cell (RBC) Count 2.36 mill/uL (4.70-6.10); White Blood Cell (WBC) Count 13.2 thou/uL (4.8-10.8)
[2019-10-17 05:24] LABS: Anion Gap 11 mmol/L (10-20); BUN (Urea Nitrogen) 32 mg/dL (8.4-25.7); Calc. Creatinine Clearance 59 mL/min (70-130); Calcium 7.8 mg/dL (7.8-10.44); Carbon Dioxide 24 mmol/L (23-31); Chloride 103 mmol/L (98-107); Estimated GFR-MDRD 47; Glucose 205 mg/dL (83-110); Potassium 3.8 mmol/L (3.5-5.1); Sodium 134 mmol/L (136-145)
[2019-10-17] MEDS: HumaLOG 300 UNITS/3 ML VIAL SC PRN ×3 (05:27→17:10)
[2019-10-17] MEDS: Acetaminophen 325 MG TAB PO PRN ×2 (06:42→20:18)
--- NOTE | 2019-10-17 07:35 | RAD ---
Chest one view HISTORY: Dyspnea. Follow-up. COMPARISON: 10/14/2019. FINDINGS: Cardiac silhouette is magnified by projection and partially obscured by slight radiographic worsening of patchy areas of ill-defined parenchymal infiltrate throughout each lung. Mediastinum is midline. Pulmonary volumes are decreased. No evidence of pneumothorax. IMPRESSION : Slight interval radiographic worsening of multifocal bilateral parenchymal infiltrate.
[2019-10-17 08:29] LABS: Iron 65 ug/dL (65-175); Iron Binding Capacity, Total 198 mcg/dL (261-462); Transferrin, Serum 158 mg/dL (163-344)
[2019-10-17] MEDS: Folic Acid 1 MG TAB PO SCH (08:34)
[2019-10-17] MEDS: Aggrenox 200-25mg CAP PO SCH ×2 (08:34→20:18)
[2019-10-17] MEDS: Multivitamin W/ Minerals 1 TAB PO SCH (08:34)
[2019-10-17] MEDS: Fludrocortisone Acetate 0.1 MG TAB PO SCH (08:34)
[2019-10-17] MEDS: predniSONE 5 MG TAB PO SCH (08:34)
[2019-10-17 11:04] LABS: Actual Bicarbonate (HCO3a) 19.7 mEq/L (22-28); CO2 Tension 26.4 mmHg (35.0-45.0); Calcium, Ionized 1.12 mmol/L (1.12-1.30); Carboxyhemoglobin (COHb) 1.4 gm% (0.0-3.0); Hemoglobin (Hb) 7.6 g/dL (14.0-18.0); O2 Tension (PaO2), arterial 75.4 mmHg (> 70.0); Potassium - ABG Lab 3.83 mmol/L (3.70-5.30); pH, Arterial 7.49 (7.35-7.45)
[2019-10-17 11:09] LABS: Puncture Site L.R.
[2019-10-17] MEDS ORDERED: Sodium Chloride 0.9% (PF) 10 ML VIAL FS PRN (11:19)
--- NOTE | 2019-10-17 11:47 | PDOC.HOSPP ---
- Subjective Encounter Date: 10/17/19 Encounter Time: 11:00 Subjective: CCC: weakness The patient was noted to desaturate to 80% on room air. He was placed on 4L nasal cannula. ABG shows mild alkalosis. Patient appears tachypneic. He denies cough, congestion. There were some difficulty in doing orthostatic, patient feels weak while standing so the nurses were unable to do a standing blood pressure. He denies abdominal pain, nausea and vomiting Patient states she feels "weak" overall Per nursing he is extremely agitated and calling for them every 30 minutes. They state he has not felt like eating much, has had minimal urine output - Objective Vital Signs & Weight: Vital Signs (12 hours) Temp Pulse Resp BP BP BP BP 10/17/19 11:10 93 24 H 97/56 L 10/17/19 10:25 97.1 F L 93 28 H 99/55 L 10/17/19 08:25 97.6 F 98 24 H 103/56 L 97/61 10/17/19 08:00 10/17/19 05:55 112 H 108/59 L 97/51 L 99/66 10/17/19 03:08 97.6 F 94 24 H 99/58 L Pulse Ox 10/17/19 11:10 100 10/17/19 10:25 94 L 10/17/19 08:25 95 10/17/19 08:00 95 10/17/19 05:55 10/17/19 03:08 94 L Weight Admit Weight 217 lb 3.2 oz Weight 206 lb 12.8 oz I&O: 10/16/19 10/17/19 10/18/19 06:59 06:59 06:59 Intake Total 1130 750 480 Output Total 1050 150 Balance 80 600 480 Result Diagrams: 10/17/19 04:25 10/17/19 04:25 Additional Labs: Accuchecks 10/16/19 10/16/19 10/16/19 20:36 16:55 13:32 POC Glucose 219 H 210 H 274 H Hospitalist ROS - Review of Systems Constitutional: denies: fever, chills - Medication Medications: Active Medications Generic Name Dose Route Start Last Admin Trade Name Freq PRN Reason Stop Dose Admin Acetaminophen 650 mg 10/14/19 14:52 10/17/19 06:42 Tylenol PO 650 mg Q4H PRN Administration Headache/Fever/Mild Pain (1-3) Albuterol Sulfate 2 puff 10/14/19 19:44 10/17/19 06:27 Proventil Hfa INH 2 puff Q6H PRN Administration SOB &/or Wheezing Atorvastatin Calcium 40 mg 10/15/19 21:00 10/16/19 20:18 Lipitor PO 40 mg HS ROSALVA Administration Dipyridamole/Aspirin 1 cap 10/16/19 21:00 10/17/19 08:34 Aggrenox PO 1 cap BID ROSALVA Administration Fludrocortisone Acetate 0.2 mg 10/17/19 09:00 10/17/19 08:34 Florinef PO 0.2 mg DAILY ROSALVA Administration Folic Acid 1 mg 10/16/19 09:00 10/17/19 08:34 Folvite PO 1 mg DAILY ROSALVA Administration Insulin Human Lispro 0 units 10/14/19 19:44 10/17/19 05:27 Humalog SC 3 unit .MILD SLIDING SCALE PRN Administration Mild Correctional Scale Iron/Minerals/Multivitamins 1 tab 10/15/19 09:00 10/17/19 08:34 Theragran M PO 1 tab DAILY ROSALVA Administration Prednisone 10 mg 10/16/19 08:00 10/17/19 08:34 Prednisone PO 10 mg QAM-WM ROSALVA Administration Sodium Chloride 10 ml 10/16/19 21:00 10/17/19 08:35 Flush - Normal Saline IVF 10 ml Q12HR ROSALVA Administration Zinc Sulfate 220 mg 10/14/19 21:00 10/16/19 20:17 Zinc Sulfate PO 220 mg 2100 ROSALVA Administration - Exam General Appearance: NAD, awake alert General - other findings: appears tachypneic Eye: PERRL, anicteric sclera Eye - other findings: difficulty in lateral gaze bilaterally ENT: normocephalic atraumatic, no oropharyngeal lesions, moist mucosa Neck: supple, symmetric, no JVD, no thyromegaly, no lymphadenopathy, no carotid bruit Heart: RRR, no murmur, no gallops, no rubs, normal peripheral pulses Respiratory: CTAB, no wheezes, no rales, no ronchi, normal chest expansion, no tachypnea, normal percussion Gastrointestinal: soft, non-tender, non-distended, normal bowel sounds, no palpable masses, no hepatomegaly, no splenomegaly, no bruit Extremities: no cyanosis, no clubbing, no edema Skin: normal turgor, no lesions, no rashes Neurological: cranial nerve grossly intact, no weakness, no focal deficits, no new deficit Neurological - other findings: LUE is weak, difficulty holding it up for too long Musculoskeletal: normal tone, normal strength, no muscle wasting Psychiatric: normal affect, normal behavior, A&O x 3 Hosp A/P - Plan CT head: cerebral and cerebellar atrophy Chest Xray: mild improvement in bilateral infiltrates CT head: subacute right MCA infarct. Chest X ray 10/16: This is 74 year old male who presented after a fall, had some transient right sided weakness per ER provider #S/p fall - possibly secondary to stroke and orthostatic hypotension #Right MCA stroke - continue aspirin, statin. Pt with left sided weakness. CT head 10/14 repeated shows subacute right MCA infarct. Will repeat CT head due to worsening mental status and weakness - ECHO unable to be done due to + COVID status - started on aggrenox - PT and OT evaluation Orthostatic hypotension - s/p 1L fluid 10/14 and 10/15 - continue fludrocortisone 0.2 mg daily #COVID + #Leukocytosis - worsening - WBC up to 13.2. Prednisone 10 mg daily x 3 more days to continue COVID taper from last hospitalization . Chest X ray 10/14 shows improved bilateral infiltrates. Chest Xray 10/15 shows worsening multifocal infiltrates - blood cultures negative - will start IV zosyn empirically - consider ID consult #Possible NSTEMI - troponin peaked at 1.370. Repeat troponin improved to 0.7. He is s/p therapeutic lovenox for 48 hours - ECHO not able to be done, cardiology cannot evaluate due to + COVID status. Patient denies chest pain - continue aggrenox, atorvastatin 40 mg #Type II diabetes -fingersticks achs - insulin sliding scale #Anemia - hemoglobin of 11, stable Code status: full code
[2019-10-17 12:08] LABS: ALT (SGPT) 24 U/L (8-55); AST (SGOT) 33 U/L (5-34); Albumin 2.7 g/dL (3.4-4.8); Alkaline Phosphatase 71 U/L (40-110); Bilirubin, Direct 0.5 mg/dL (0.1-0.3); Protein, Total 5.3 g/dL (5.8-8.1)
[2019-10-17] MEDS: Piperacillin/Tazobactam 3.375 GM in Sodium Chloride 0.9% 100 ML IVPB SCH ×3 (12:19→23:39)
[2019-10-17] MEDS: Sodium Chloride 0.9% 1,000 ML IV SCH (12:19)
[2019-10-17 14:40] LABS: Creatinine, Urine 126.82 mg/dL (63-166); Sodium, Urine Less than 20 mmol/L (Not Available)
--- NOTE | 2019-10-17 14:40 | CT ---
CT head noncontrast HISTORY: Altered mental status. CVA. Encephalopathy. COMPARISON: 10/15/2019. FINDINGS: There is no evidence of acute intracranial hemorrhage. Ill-defined, becoming wedge-shaped a reas of decreased density involving the upper anterior and posterior portions of the right frontal lobe extends through the caro-white junction and has become more pronounced than on the previous stud y. Mild effacement of the associated cortical sulci. Septum pellucidum is midline. No new areas of infarct. Lobular mucosal thickening evident within the partially visualized left maxillary sinus. IMPRESSION : Continued evolution of the right MCA infarct. No new abnormalities are demonstrated.
--- NOTE | 2019-10-17 14:58 | CT ---
CT OF THE ABDOMEN AND PELVIS WITHOUT IV CONTRAST: 10/17/19 INDICATION: History of hypotension on blood thinners. Evaluate for retroperitoneal bleed. COMPARISON: None. FINDINGS: There is bibasilar air space consolidation consistent with pneumonia, Unopacified liver is unremarkable appearing. There is slight layering hyperdensity in the gallbladder suspicious for either small stones or sludge. Unopacified pancreas is unremarkable. Unopacified adre nal glands and spleen appear within normal limits. There are bilateral hypodense lesions involving silver th kidneys found to reflect cysts on a prior renal ultrasound dated 09/29/19. There is a nonobstructin g calculus in the mid pole of the left kidney measuring 1.5 cm. There is an additional smaller 3 mm c alculus in the inferior pole of the right left kidney. No hydronephrosis is demonstrated. No retroperitoneal hemorrhage is noted. There is a mild amount of retained stool within the rectum. Unopacified small and large bowel appear within normal limits. There is a normal appendix in the righ t lower quadrant. There are mild vascular calcification involving the abdominopelvic vasculature. There is a prominent intramuscular hematoma in the left gluteus jossie measuring approximately 12 cm . There is an additional hematoma in the left gluteus medius musculature measuring 5.2 cm. There is s oft tissue reticulation involving the left gluteal region. No definite acute osseous abnormality is e vident. IMPRESSION: 1. Large left gluteus jossie intramuscular hematoma measuring up to 12 cm. There is a smaller h ematoma within the left gluteus medius musculature measuring 5.2 cm. There is inflammatory reticulati on overlying the left hip region. No retroperitoneal hematoma is evident. 2. Bibasilar pneumonia. 3. Cholelithiasis. 4. Bilateral renal cysts. 5. Colonic diverticulosis. POS: [facility]
[2019-10-17] MEDS: Atorvastatin Calcium 40 MG TAB PO SCH (20:18)
[2019-10-17] MEDS: Zinc Sulfate 220 MG CAP PO SCH (23:39)
[2019-10-17] MEDS: Pantoprazole 40 MG VIAL IVP SCH (23:39)
[2019-10-18] MEDS: Piperacillin/Tazobactam 3.375 GM in Sodium Chloride 0.9% 100 ML IVPB SCH ×5 (04:07→23:08)
[2019-10-18] MEDS: Sodium Chloride 0.9% 1,000 ML IV SCH (04:07)
[2019-10-18 05:22] LABS: Mean Corpuscular HGB CONC 32.7 g/dL (32.0-36.0); Mean Corpuscular Hemoglobin 29.9 pg (27.0-31.0); Mean Corpuscular Volume 91.5 fL (78.0-98.0); Mean Platelet Volume 8.2 fL (7.4-10.4); Platelet Count 248 thou/uL (130-400); RBC Distribution Width 12.2 % (11.5-14.5); Red Blood Cell (RBC) Count 2.68 mill/uL (4.70-6.10); White Blood Cell (WBC) Count 11.7 thou/uL (4.8-10.8)
[2019-10-18 05:42] LABS: Anion Gap 13 mmol/L (10-20); BUN (Urea Nitrogen) 28 mg/dL (8.4-25.7); Calc. Creatinine Clearance 61 mL/min (70-130); Calcium 7.8 mg/dL (7.8-10.44); Carbon Dioxide 23 mmol/L (23-31); Chloride 104 mmol/L (98-107); Estimated GFR-MDRD 48; Glucose 184 mg/dL (83-110); Potassium 3.5 mmol/L (3.5-5.1); Sodium 136 mmol/L (136-145)
--- NOTE | 2019-10-18 06:04 | CON ---
DATE OF CONSULTATION: CONSULTING PHYSICIAN: Kirby Walter MD REQUESTING PHYSICIAN: Dr. Nicolas. REASON FOR CONSULTATION: Acute kidney injury. IMPRESSION: Acute kidney injury likely hemodynamically mediated in the context of lower blood pressure related to this patient's baseline blood pressure. PLAN: 1. Stabilize the patient's hemodynamics and the patient may benefit from gentle rehydration. 2. Renally dose all medications and avoid potentially nephrotoxic agents. HISTORY OF PRESENT ILLNESS: History is that of a 74-year-old gentleman who presented here status post fall possibly in the context of orthostatic hypotension with possibility of CVA also. The patient's creatinine has gone up to 1.48 when the patient's normal creatinine has been in the neighborhood of normal range. The patient recently diagnosed with coronavirus . As a result of the bump in the creatinine, decision has been taken to involve Renal in the management of this case. PAST MEDICAL HISTORY: Significant for hypertension, dyslipidemia, positive COVID. FAMILY HISTORY: No family history of kidney disease. SOCIAL HISTORY: No alcohol, no tobacco, no illicit drug use. REVIEW OF SYSTEMS: As documented in the body of the history. All other systems were reviewed and found not to be significantly related to presenting illness. PHYSICAL EXAMINATION: GENERAL: On examination, the patient was found not to be in any obvious distress. VITAL SIGNS: Noted with the following vital signs; afebrile, temperature 97.1, pulse 95, respiratory rate of 20, O2 saturation of 98%, blood pressure 105/59. HEENT: Unremarkable. CARDIOVASCULAR SYSTEM: First and second heart sounds are heard. EXTREMITIES: No peripheral edema. SKIN: No new gross rash. DIGESTIVE SYSTEM: Revealed a benign abdomen with positive bowel sounds. LYMPHATICS: No peripheral lymphadenopathy. SUMMARY: A 74-year-old gentleman who presented here status post fall, noted by the blood pressure dropping down to the 80s with a bump in creatinine making this hemodynamically mediated acute kidney injury. Thank you for this consultation. We will follow with you. Job ID: [id number]
[2019-10-18] MEDS: predniSONE 5 MG TAB PO SCH (08:21)
[2019-10-18] MEDS: Aggrenox 200-25mg CAP PO SCH ×2 (08:21→20:50)
[2019-10-18] MEDS: Multivitamin W/ Minerals 1 TAB PO SCH (08:21)
[2019-10-18] MEDS: Fludrocortisone Acetate 0.1 MG TAB PO SCH (08:21)
[2019-10-18] MEDS: Pantoprazole 40 MG VIAL IVP SCH ×2 (08:21→20:50)
[2019-10-18] MEDS: Folic Acid 1 MG TAB PO SCH (08:21)
--- NOTE | 2019-10-18 12:43 | EKG ---
Test Reason : Blood Pressure : / mmHG Vent. Rate : 101 BPM Atrial Rate : 101 BPM P-R Int : 138 ms QRS Dur : 076 ms QT Int : 402 ms P-R-T Axes : 046 007 164 degrees QTc Int : 521 ms Sinus tachycardia Anteroseptal infarct (cited on or before 14-OCT-2019) T wave abnormality, consider lateral ischemia Abnormal ECG When compared with ECG of 14-OCT-2019 10:34, (Unconfirmed) No significant change was found Confirmed by DR. Sergio OJEDA ([id number]) on 10/18/2019 12:43:16 PM Referred By: [facility] Confirmed By:DR. Sergio OJEDA
[2019-10-18] MEDS: HumaLOG 300 UNITS/3 ML VIAL SC PRN ×2 (13:11→18:30)
--- NOTE | 2019-10-18 15:23 | EKG ---
Test Reason : Blood Pressure : / mmHG Vent. Rate : 083 BPM Atrial Rate : 083 BPM P-R Int : 134 ms QRS Dur : 090 ms QT Int : 424 ms P-R-T Axes : 047 -05 030 degrees QTc Int : 498 ms Normal sinus rhythm Septal infarct , age undetermined Marked T wave abnormality, consider anterolateral ischemia Abnormal ECG Confirmed by POOL MANNING M.D. ([id number]), design editor ELIAN WELLER ([id number]) on 10/18/2019 3:23:37 PM Referred By: Confirmed By:POOL MANNING M.D.
[2019-10-18] MEDS ORDERED: Morphine 2 MG/ML SYRINGE SLOW IVP PRN (15:25)
[2019-10-18] MEDS ORDERED: traMADol HCl 50 MG TAB PO PRN (15:25)
--- NOTE | 2019-10-18 17:08 | PDOC.HOSPP ---
- Subjective Encounter Date: 10/18/19 Encounter Time: 16:00 Subjective: The patient is doing better. He stood up today, was unsteady on feet per nursing. He denies dizziness or lightheadedness. Patient denies cough - Objective Vital Signs & Weight: Vital Signs (12 hours) Temp Pulse Resp BP BP BP BP 10/18/19 12:00 97.2 F L 88 21 H 10/18/19 11:26 119/74 117/63 120/72 124/74 10/18/19 08:00 97.4 F L 84 20 BP BP BP BP BP Pulse Ox Pulse Ox 10/18/19 12:00 120/72 117/63 124/74 119/71 97 10/18/19 11:26 91 L 10/18/19 08:00 118/69 100 Weight Admit Weight 217 lb 3.2 oz Weight 206 lb 12.8 oz I&O: 10/17/19 10/18/19 10/19/19 06:59 06:59 06:59 Intake Total 750 2490 75 Output Total 150 625 Balance 600 1865 75 Result Diagrams: 10/18/19 05:11 10/18/19 05:11 Additional Labs: Accuchecks 10/18/19 12:42 POC Glucose 283 H Hospitalist ROS - Review of Systems Constitutional: denies: fever, chills Respiratory: denies: cough, dry Cardiovascular: denies: chest pain, palpitations Gastrointestinal: denies: nausea, vomiting, hematochezia - Medication Medications: Active Medications Generic Name Dose Route Start Last Admin Trade Name Freq PRN Reason Stop Dose Admin Acetaminophen 650 mg 10/14/19 14:52 10/17/19 20:18 Tylenol PO 650 mg Q4H PRN Administration Headache/Fever/Mild Pain (1-3) Albuterol Sulfate 2 puff 10/14/19 19:44 10/17/19 06:27 Proventil Hfa INH 2 puff Q6H PRN Administration SOB &/or Wheezing Atorvastatin Calcium 40 mg 10/15/19 21:00 10/17/19 20:18 Lipitor PO 40 mg HS ROSALVA Administration Dipyridamole/Aspirin 1 cap 10/16/19 21:00 10/18/19 08:21 Aggrenox PO 1 cap BID ROSALVA Administration Fludrocortisone Acetate 0.2 mg 10/17/19 09:00 10/18/19 08:21 Florinef PO 0.2 mg DAILY ROSALVA Administration Folic Acid 1 mg 10/16/19 09:00 10/18/19 08:21 Folvite PO 1 mg DAILY ROSALVA Administration Piperacillin Sod/Tazobactam 100 mls @ 200 mls/hr 10/17/19 11:00 10/18/19 12: 30 Sod 3.375 gm/ Sodium Chloride IVPB 100 mls Q6H ROSALVA Administration Sodium Chloride 1,000 mls @ 75 mls/hr 10/17/19 12:00 10/18/19 04:07 Normal Saline 0.9% IV 1,000 mls .[id number] ROSALVA Administration Insulin Human Lispro 0 units 10/14/19 19:44 10/18/19 13:11 Humalog SC 4 unit .MILD SLIDING SCALE PRN Administration Mild Correctional Scale Iron/Minerals/Multivitamins 1 tab 10/15/19 09:00 10/18/19 08:21 Theragran M PO 1 tab DAILY ROSALVA Administration Pantoprazole Sodium 40 mg 10/17/19 21:00 10/18/19 08:21 Protonix IVP 40 mg Q12HR ROSALVA Administration Prednisone 10 mg 10/16/19 08:00 10/18/19 08:21 Prednisone PO 10 mg QAM-WM ROSALVA Administration Sodium Chloride 10 ml 10/16/19 21:00 10/18/19 08:20 Flush - Normal Saline IVF 10 ml Q12HR ROSALVA Administration Tramadol HCl 50 mg 10/18/19 15:25 10/18/19 16:01 Ultram PO 50 mg Q6H PRN Administration Severe Pain (7-10) Zinc Sulfate 220 mg 10/14/19 21:00 10/17/19 23:39 Zinc Sulfate PO 220 mg 2100 ROSALVA Administration - Exam General Appearance: NAD, awake alert Eye: PERRL, anicteric sclera ENT: normocephalic atraumatic, no oropharyngeal lesions Neck: no JVD Heart: RRR, no murmur, no gallops, no rubs Respiratory: CTAB, no wheezes, no rales, no ronchi Gastrointestinal: soft, non-tender, non-distended, normal bowel sounds Extremities: no cyanosis, no clubbing, no edema Skin: normal turgor, no lesions, no rashes Musculoskeletal - other findings: bruising on left hip. 5/5 strength lower and RUE. 4/5 LUE Psychiatric: normal affect, normal behavior, A&O x 3 Hosp A/P - Plan CT head: cerebral and cerebellar atrophy Chest Xray: mild improvement in bilateral infiltrates CT head: subacute right MCA infarct. Chest X ray 10/16: worsening multifocal bilateral infiltrates CT head 10/17: evolution of right MCA infarct CT abdomen: bibasilar airspace consolidation consistent with pneumonia. large left gluteus jossie intramuscular hematoma measuring up to 12 cm. 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 Bibasilar pneumoina. Cholelithiasis. Bilateral renal cysts. Colonic diverticulosis This is 74 year old male who presented after a fall, had some transient right sided weakness per ER provider #S/p fall - possibly secondary to stroke and orthostatic hypotension #Right MCA stroke - continue aspirin, statin. Pt with left sided weakness. CT head 10/14 repeated shows subacute right MCA infarct. Repeat CT head 10/16 showed evolving stroke - ECHO unable to be done due to + COVID status - started on aggrenox - PT is recommending rehab IJEOMA- - creatinine mildly improving to 1.44. FeNA consistent with pre-renal etiology - continue IV fluids Orthostatic hypotension - s/p 1L fluid 10/14 and 10/15 - continue fludrocortisone 0.2 mg daily #COVID + #Pneumonia - WBC improving, started on zosyn 10/16 for worsening pneumonia - prednisone 10 mg daily x 2 more days for COVID taper from last hospitalization #Possible NSTEMI - troponin peaked at 1.370. Repeat troponin improved to 0.7. He is s/p therapeutic lovenox for 48 hours - ECHO not able to be done, cardiology cannot evaluate due to + COVID status. Patient denies chest pain - continue aggrenox, atorvastatin 40 mg #Type II diabetes -fingersticks achs - insulin sliding scale. Will add 7 units lantus tonight #Anemia - hemoglobin of 11, stable Dispo: pending resolution of IJEOMA. Needs rehab Code status: full code
[2019-10-18] MEDS ORDERED: Sodium Chloride 0.9% 1,000 ML IV SCH (18:16)
[2019-10-18] MEDS: Atorvastatin Calcium 40 MG TAB PO SCH (20:50)
[2019-10-18] MEDS: Zinc Sulfate 220 MG CAP PO SCH (20:50)
[2019-10-18] MEDS ORDERED: Insulin Glargine 7 UNITS in Pre-Filled Syringe SC SCH (21:00)
[2019-10-19] MEDS: Acetaminophen 325 MG TAB PO PRN (04:21)
[2019-10-19] MEDS: Piperacillin/Tazobactam 3.375 GM in Sodium Chloride 0.9% 100 ML IVPB SCH (04:21)
[2019-10-19 04:51] LABS: Hemoglobin 8.1 g/dL (14.0-18.0); Mean Corpuscular HGB CONC 32.8 g/dL (32.0-36.0); Mean Corpuscular Hemoglobin 30.2 pg (27.0-31.0); Platelet Count 253 thou/uL (130-400); Platelet Count 263 thou/uL (130-400); RBC Distribution Width 12.5 % (11.5-14.5); Red Blood Cell (RBC) Count 2.68 mill/uL (4.70-6.10); White Blood Cell (WBC) Count 9.2 thou/uL (4.8-10.8)
[2019-10-19 05:11] LABS: Anion Gap 13 mmol/L (10-20); BUN (Urea Nitrogen) 21 mg/dL (8.4-25.7); Calc. Creatinine Clearance 67 mL/min (70-130); Calcium 7.8 mg/dL (7.8-10.44); Carbon Dioxide 22 mmol/L (23-31); Chloride 106 mmol/L (98-107); Estimated GFR-MDRD 54; Glucose 176 mg/dL (83-110); Potassium 3.4 mmol/L (3.5-5.1); Sodium 138 mmol/L (136-145)
[2019-10-19] MEDS: HumaLOG 300 UNITS/3 ML VIAL SC PRN (05:50)
[2019-10-19] MEDS ORDERED: Potassium Chloride 20 MEQ TAB PO SCH (08:15)
[2019-10-19] MEDS: predniSONE 5 MG TAB PO SCH (10:54)
[2019-10-19] MEDS: Multivitamin W/ Minerals 1 TAB PO SCH (10:55)
[2019-10-19] MEDS: Fludrocortisone Acetate 0.1 MG TAB PO SCH (10:55)
[2019-10-19] MEDS: Folic Acid 1 MG TAB PO SCH (10:55)
[2019-10-19] MEDS: Pantoprazole 40 MG VIAL IVP SCH (10:55)
[2019-10-19] MEDS: Aggrenox 200-25mg CAP PO SCH (10:55)
[2019-10-19] MEDS ORDERED: Piperacillin/Tazobactam 3.375 GM in Sodium Chloride 0.9% 100 ML IVPB SCH (12:00)
--- NOTE | 2019-10-19 17:01 | PRG ---
DATE OF SERVICE: 10/18/2019 OBJECTIVE: VITAL SIGNS: The patient was noted with the following vital signs; afebrile, temperature 97.5, pulse 84, respirations O2 saturation 97% with a blood pressure of 131/80. HEENT: Unremarkable. CARDIOVASCULAR: First and second heart sounds were heard. RESPIRATORY: Clear to auscultation. DIGESTIVE: Revealed a benign abdomen. Positive bowel sounds. EXTREMITIES: No peripheral edema. SKIN: No new gross rash. LABORATORY INVESTIGATION: Showed a hemoglobin of 8.0. Chemistry showed a creatinine now down to 1.44. IMPRESSION: Acute on chronic kidney disease, hemodynamically mediated, much improved. PLAN: 1. Continue hemodynamic support. 2. Further management to be dependent on the clinical course. Job ID: [id number]
--- NOTE | 2019-10-19 17:08 | PRG ---
DATE OF SERVICE: 10/19/2019 OBJECTIVE: VITAL SIGNS: Diomedes Baugh noted with the following vital signs. Afebrile, temperature 96.3, pulse 86, respiratory rate of 20, O2 saturation of 98%, blood pressure 101/56 to 102/70. HEENT: Unremarkable. CARDIOVASCULAR SYSTEM: First and second heart sounds were heard. RESPIRATORY SYSTEM: Clear to auscultation. DIGESTIVE SYSTEM: Revealed a benign abdomen. Positive bowel sounds. EXTREMITIES: No peripheral edema. SKIN: No new gross rash. LYMPHATICS: No peripheral lymphadenopathy. IMPRESSION: [id number] kidney disease, much improved. PLAN: Discontinue IV fluids. Job ID: [id number]
[2019-10-19 17:32] VITALS: BP 125/77; TEMP 98.4
--- NOTE | 2019-10-20 07:50 | DIS ---
DATE OF ADMISSION: 10/14/2019 DATE OF DISCHARGE: 10/19/2019 DISCHARGE DIAGNOSES: 1. Right MCA stroke. 2. Status post fall possibly secondary to stroke versus orthostatic hypotension. 3. Acute kidney injury. 4. Coronavirus. 5. Acute hypoxic respiratory failure secondary to pneumonia. 6. Possible dcd-JV-qbucwntao myocardial infarction. 7. Folate deficiency anemia. CONSULTATIONS: Neurology with Dr. Kahlil Hudson, Dr. Kirby Walter with Nephrology. PROCEDURES: None. BRIEF HISTORY OF PRESENT ILLNESS: This is a 74-year-old male, who had presented to the emergency room after a fall. The patient said he stood up and lost his balance and fell on his back. According to his family, he had some left-sided weakness. The patient denied any respiratory symptoms from his COVID. He had an EKG, which showed normal sinus rhythm. His troponin was greater than 1. He was given aspirin 324 and therapeutic Lovenox and admitted for stroke workup. HOSPITAL COURSE: Right MCA stroke: The patient had a CT scan of his head on admission, which showed cerebral and cerebellar atrophy. Repeat CT head on the showed a subacute right MCA infarct. He was started on aspirin 325 and statin on admission. Echo was unable to be done due to his positive COVID status; however , this is recommended eventually. He did have some left-sided weakness on exam. Neurology was consulted and switched him to Aggrenox. He was seen by Physical Therapy, Occupational Therapy, and Speech. Physical Therapy recommended rehab; however, the patient declined and wants to go home to his house. The patient states that his son-in- law is a physical therapist, and he would like to get therapy at home. His is also COVID positive and feels comfortable being at home with his . He was seen by Case Management, who stated that the patient was accepted at [facility]. They were advised that if the patient deteriorates at home, that he can go to [facility]. Orthostatic hypotension/IJEOMA: The patient did have severe dizziness while standing. He was noted to have a blood pressure of 60 systolic while standing. He did receive IV fluids during his hospital course. His creatinine had increased to 1.48 and improved with hydration to 1.30. He was also started on fludrocortisone, which was increased to 0.2 mg daily. Repeat orthostatics on the day of discharge were negative. He was seen by Nephrology in consultation as well, who had no further recommendations. This can be further followed up with his PCP as an outpatient. Large left gluteal intramuscular hematoma:. The patient did have a fall and due to persistent hypotension, a CT scan of his abdomen/pelvis was done to assess for bleeding. It incidentally revealed a large left gluteus jossie intramuscular hematoma up to 12 cm. The patient does have some mild left hip tenderness on that side. I spoke to the orthopedic doctor, who recommended conservative management. He will be getting PT as an outpatient on discharge. Acute hypoxic respiratory failure secondary to NSTEMI versus COVID positive pneumonia: Chest x-ray on admission showed improvement in his bilateral infiltrates compared to his last admission. Repeat COVID testing was positive on the . He was monitored off therapy, however, on 10/16, the patient had desaturated. Repeat chest x-ray showed worsening multifocal bilateral infiltrates. His white blood cell count had increased to 13, so he was started on Zosyn empirically. He is doing better and was weaned down to room air on discharge. His prednisone taper from his last hospitalization will be finished tomorrow, and the patient should take prednisone 10 mg for only one more day. He did have a repeat coronavirus testing done during his hospitalization, which was positive on the . He should finish antibiotics with Augmentin for 6 more days and get a repeat chest x-ray in 6 weeks. At some point, he should have a repeat coronavirus testing done as an outpatient to see if this is cleared. He also did have elevated troponins that peaked at 1.370 with diffuse T wave inversions. Cardiology was consulted and stated these changes could be secondary to stroke. He received empiric lovenox for 48 hours. ECHO was unable to be done due to COVID + status. Repeat EKG showed improvement but persistent T wave inversions. He can follow up with Dr. Chatman once COVID negative for outpatient ECHO. Folate deficiency anemia: The patient did have hemoglobin of 11 on admission, which downtrended to 7.2 on the . He was transfused 1 unit of PRBC. Vitamin B12 levels were unremarkable. However, folate level was very low at 6.7. He was started on folic acid supplements. He should have repeat CBC as an outpatient with PCP Bilateral renal cysts: This should be monitored as an outpatient. DISCHARGE PHYSICAL EXAMINATION: VITAL SIGNS: Temperature 96.3, heart rate 86, respiratory rate 20, O2 saturation 95% on room air, and blood pressure 112/70. GENERAL: The patient is overweight. CVS: Regular rate and rhythm with no murmurs, rubs, or gallops. LUNGS: Diminished breath sounds bilaterally. ABDOMEN: Positive bowel sounds. Soft, nontender, nondistended. EXTREMITIES: No edema. NEURO: Cranial nerves 2 through 12 are intact. He does have some mild left- sided neglect. He has 5/5 strength in his lower extremities. 4/5 strength in left upper extremity and 5/5 in right upper extremity. He does have some left hip tenderness on exam. PERTINENT LABORATORY DATA: CBC on 10/18: White blood cell count 9.2, hemoglobin 8.1, hematocrit 24.6, and platelet count 253. BMP 10/18: Potassium is 3.4, creatinine 1.30. Rest of BMP unremarkable. Iron panel: Iron 65, TIBC 198, percent sat 33, transferrin 158, ferritin 882.48. LFTs: AST 33, ALT 24, alkaline phosphatase 71, direct bilirubin 0.5, total bilirubin 1.0. Vitamin B12: 1311. Folate: 6.70. UA 10/13: Unremarkable. COVID PCR 10/13: Positive. IMAGING DATA: CT brain on 10/13: Cerebral and cerebellar atrophy. Chest x-ray on 10/13: Mild improvement in bilateral infiltrates. CT head on 10/14: Subacute right MCA infarct. Chest x-ray on 10/16: Worsening multifocal bilateral infiltrate. CT head on 10/17: Evolution of right MCA infarct. CT abdomen on 10/17: Bibasilar airspace consolidation consistent with pneumonia. Large left gluteus jossie intramuscular hematoma measuring up to 12 cm. Small hematoma in left gluteus medius that is 5.2 cm. Bibasilar pneumonia. Cholelithiasis. Bilateral renal cyst. Colonic diverticulosis. DISCHARGE CONDITION: Stable. ACTIVITY: As tolerated. DIET: Heart-healthy diet and diabetic diet. DISCHARGE INSTRUCTIONS: The patient should follow up with his PCP in a week. He should have an echo done as an outpatient. He should continue prednisone for only one more day. He should start taking fludrocortisone for orthostatic hypotension and midodrine as needed. He should start taking aspirin/dipyridamole and start taking statin for his stroke. He should repeat chest x-ray in 6 weeks. DISCHARGE MEDICATIONS: New prescriptions: 1. Augmentin 875/125 mg one tablet each p.o. b.i.d. 2. Aggrenox 1 capsule p.o. b.i.d. 3. Atorvastatin 40 mg p.o. q.h.s. 4. Fludrocortisone 0.2 mg p.o. daily. 5. Folic acid 1 mg p.o. daily. 6. Midodrine 2.5 mg p.o. t.i.d. p.r.n. Job ID: [id number] MTDD
--- NOTE | 2019-10-21 07:55 | PQF ---
[employer] Crystal Reports [employer] BiDEEP LOCKHART SRIRAM OLIVEROS, YECENIA [id number] [facility]-[id number] CLINICAL DOCUMENTATION CLARIFICATION FORM: POST DISCHARGE Addendum to original discharge summary date: ____ Late entry note date: __ DATE: 10/21/2019 ATTN: Yecenia Lazo Please exercise your independent, professional judgment in responding to the clarification form. Clinical indicators are provided on the bottom of this form for your review Please check appropriate box(es): [ ] Sepsis [X ] Localized infection without sepsis [ ] Other diagnosis [ ] Unable to determine In addition, please specify: Present on Admission (POA): [ ] Yes [ ] No [ ] Unable to determine For continuity of documentation, please document condition throughout progress notes and discharge summary. Thank You. CLINICAL INDICATORS - SIGNS / SYMPTOMS / LABS WBC is 16.3 on 10/13, 13.0 on 10/14, 12.8 on 10/15 and 13.2 on 10/16 - Laboratory Temperature is 96.7 F on 10/13 and 96.0 F on 10/14 - Vital signs Pulse 101 on 10/13 - Vital signs Respiratory rate is 21 on 10/13 and 22 on 10/15 - Vital signs COVID plus leukocytosis. Will continue prednisone taper with 10 mg bid today - H and P dated 10/13 by Yecenia Lazo Orthostatic hypotension, he was noted to have a blood pressure of 60 systolic while standing, received IV fluids during his hospital course - Discharge summary RISK FACTORS COVID positive pneumonia - Discharge summary Left gluteal intramuscular hematoma - Discharge summary Acute hypoxic respiratory failure - Discharge summary TREATMENTS: IV Zosyn from 10/16 to 10/18 - Medications IV fluids from 10/15 to 10/18 - Medications (This form is maintained as a part of the permanent medical record) 2014 [employer]. All Rights Reserved Hemanth [email or web address]
== END 2019-10-19 18:23 | disposition home health service (06) | DRG 64 ==
LOC: ERS 10:19 → 2SW 15:13
PROVIDERS: ADMIT Internal Medicine; ATTEND Internal Medicine
PROC: 8E0ZXY6 Isolation (ICD-10-PCS; principal; 2019-10-14)
PROC: 30233N1 Transfusion of Nonautologous Red Blood Cells into Peripheral Vein, Percutaneous Approach (ICD-10-PCS; 2019-10-17)
DX: I63.9 Cerebral infarction, unspecified (principal); I21.4 Non-ST elevation (NSTEMI) myocardial infarction; U07.1 COVID-19; J12.89 Other viral pneumonia; J96.01 Acute respiratory failure with hypoxia; G81.94 Hemiplegia, unspecified affecting left nondominant side; N17.9 Acute kidney failure, unspecified; E78.5 Hyperlipidemia, unspecified; R40.2362 Coma scale, best motor response, obeys commands, at arrival to emergency department; R40.2142 Coma scale, eyes open, spontaneous, at arrival to emergency department; R40.2252 Coma scale, best verbal response, oriented, at arrival to emergency department; N28.1 Cyst of kidney, acquired; I12.9 Hypertensive chronic kidney disease with stage 1 through stage 4 chronic kidney disease, or unspecified chronic kidney disease; E11.22 Type 2 diabetes mellitus with diabetic chronic kidney disease; I95.1 Orthostatic hypotension; D52.9 Folate deficiency anemia, unspecified; N18.9 Chronic kidney disease, unspecified; D63.8 Anemia in other chronic diseases classified elsewhere; S30.0XXA Contusion of lower back and pelvis, initial encounter; W19.XXXA Unspecified fall, initial encounter; Z90.89 Acquired absence of other organs
CPT/HCPCS: 36415; 36416; 36430; 70450; 71045; 74176; 80048; 80053; 80076; 81003; 81015; 82274; 82553; 82570; 82607; 82728; 82746; 82805; 83540; 83550; 83605; 83880; 83935; 84300; 84466; 84484; 85014; 85018; 85025; 85027; 85049; 85610; 85730; 86850; 86900; 86901; 87040; 87635; 93005; 93010; 96372; C9113; J1650; J1815; J2543; J3490; J7512; P9016; U0003

== ENCOUNTER 2020-01-03 13:02 | Outpatient (CLI) | payer MEDICARE | END 2020-01-03 13:03 | disposition home or self-care (01) | LOC: ULT 13:02 | PROVIDERS: ATTEND Psychiatry & Neurology Neurology | DX: I66.01 Occlusion and stenosis of right middle cerebral artery (principal); I07.1 Rheumatic tricuspid insufficiency | CPT/HCPCS: 93306 ==

== ENCOUNTER 2021-04-04 07:57 | Outpatient (CLI) | payer MEDICARE | END 2021-04-04 07:58 | disposition home or self-care (01) | LOC: BICMRI 07:57 | PROVIDERS: ATTEND Family Medicine | DX: M54.16 Radiculopathy, lumbar region (principal); M48.061 Spinal stenosis, lumbar region without neurogenic claudication; M48.07 Spinal stenosis, lumbosacral region; M43.9 Deforming dorsopathy, unspecified | CPT/HCPCS: 72148 ==